=== PATIENT | male | born 1985 | race Caucasian/White ===

== ENCOUNTER 2017-08-14 06:20 | Inpatient (IN) | payer SELFPAY ==
[~2017-08-14] VITALS: Ht 167.6 cm; Wt 70.2 kg
[2017-08-14] VITALS (7 sets, daily range): BP systolic 107–159; BP diastolic 53–77; PULSE 59–115; RESP 16–21; TEMP 98.7–102.7; O2SAT 96–99
--- NOTE | 2017-08-14 06:50 | PD ---
HPI Chief Complaint: Skin Problem Time Seen by Provider: 06:42 Travel History International Travel<30 days: No Contact w/Intl Traveler<30days: No Traveled to known affect area: No History of Present Illness HPI The patient is a 31 year old male who presents to the [facility] emergency department with a history of multiple systemic complaints. #1, the patient reports having a one-week history of sore throat. #2 the patient reports having a one-week history of dysuria with urinary frequency and urgency with a green penile discharge. He denies any new sexual partners but admits that he does not use condoms when he does have sex. #3 the patient reports having left upper extremity swelling and redness with pain that began 2-3 days ago. He reports that he last used IV drugs 2 days ago. He reports that he injects Dilaudid. He denies any known history of HIV or hepatitis C. He reports that he has not been recently tested. He reports having a subjective fever today. He reports having chills. He reports having nausea without vomiting. He reports that over the last week he has had intermittent diarrhea every other day. He denies having any blood in his stool or black or tarry stools. The patient reports on review of systems having chest pain in the center of his chest on palpating his sternum. He denies having any swelling over his sternum. He denies having any shortness of breath. Otherwise on review of systems, he denies having any abdominal pain, cough, neck pain, back pain, or neurologic symptoms. FOR[facility]LY [facility] Past Medical History Narrative Medical The patient's past medical history is significant for MRSA skin infection that was dx 2 years, IV drug use. Medical History: Denies Significant Hx Diminished Hearing: No Tetanus Vaccination: < 5 Years Influenza Vaccination: No Past Surgical History Narrative Surgical The patient's past surgical history is significant for right hand I and D. Other Surgery: Yes (I&D right hand) Social History Alcohol Use: No Tobacco Use: Yes (1/2 ppd) Substance Use: Yes (dilaudid) Allergies-Medications (Allergen,Severity, Reaction): Coded Allergies: acetaminophen (Verified Allergy, Severe, 08/14/17) swelling Narrative Medication None. Review of Systems Except as stated in HPI: all other systems reviewed are Neg General / Constitutional: Positive: Fever, Chills Eyes: No: Visual changes HENT: Positive: Rhinorrhea, No: Headaches, Congestion Cardiovascular: Positive: Chest Pain or Discomfort, No: Dyspnea on exertion Respiratory: Positive: Shortness of Breath, No: Cough Gastrointestinal: Positive: Nausea, Diarrhea (loose stools every other day), No : Vomiting, Abdominal Pain Genitourinary: No: Dysuria Musculoskeletal: No: Pain Skin: Positive Rash (3 weeks) Neurologic: No: Weakness, Focal Abnormalities, Change in Mentation, Slurred Speech, Sensory Disturbance Psychiatric: No: Depression Endocrine: No: Polydipsia Hematologic/Lymphatic: No: Easy Bruising Physical Exam Narrative General: The patient is a well-developed well-nourished male in no acute distress. Head and Neck exam: Head is normocephalic atraumatic. On examination of the patient's face he is noted to have multiple areas of crusting on his chin, around his mouth, and on his cheeks. There is excoriation noted. The patient is noted to be touching and picking at the area frequently on exam. Eyes: EOMI, pupils are equal round and reactive to light. Nose: Midline septum with pink mucous membranes Mouth: Dentition unremarkable. Moist mucus membranes. Posterior oropharynx is erythematous with tonsillar hypertrophy and exudates noted. Uvula midline. Airway patent. Neck: No palpable lymphadenopathy. No nuchal rigidity. No thyromegaly. Cardiovascular: Sinus tachycardia in the low 100 without murmurs, gallops, or rubs. No pulse deficit to the extremities on simultaneous auscultation and palpation of his radial artery. Lungs: Clear to auscultation bilaterally. No wheezes, rhonchi, or rales. Abdomen: Soft, without tenderness to palpation in all 4 quadrants of the abdomen. No guarding, rebound, or rigidity. Normal bowel sounds are audible. No tenderness on palpation of McBurney's point. Extremities: No clubbing, cyanosis, or edema, except in the area of interest, left upper extremity, the patient is noted to have swelling of the left arm with redness, warmth, tenderness on palpation. The patient has no pointing or area of fluctuance. The patient has soft compartments on palpation. The patient has intact sensation over all digits. The patient has less than 3 second capillary refill. 2+ pulses in all 4 extremities. No calf tenderness on palpation. Back: No spinous process tenderness to palpation. No costovertebral angle tenderness to palpation. Neurologic Exam: Grossly nonfocal. Skin Exam: Intact skin that is warm and dry. Data Data Last Documented VS Vital Signs Date Time Temp Pulse Resp B/P (MAP) Pulse Ox O2 Delivery O2 Flow Rate FiO2 08/14/17 07:25 88 21 131/58 (82) 99 Room Air 08/14/17 06:24 100.3 Orders Orders Electrocardiogram (08/14/17 06:57) Complete Blood Count With Diff (08/14/17 06:57) Comprehensive Metabolic Panel (08/14/17 06:57) Creatine Kinase (Cpk) (08/14/17 06:57) Ckmb (Isoenzyme) Profile (08/14/17 06:57) Troponin I (08/14/17 06:57) Blood Culture (08/14/17 06:57) C-Reactive Protein (Crp) (08/14/17 06:57) Urinalysis - C+S If Indicated (08/14/17 06:57) Westergren Sedimentation Rate (08/14/17 06:57) Magnesium (Mg) (08/14/17 06:57) Group A Rapid Strep Screen (08/14/17 06:57) Gc And Chlamydia Pcr (08/14/17 06:57) Chest, Single Ap (08/14/17 06:57) Iv Access Insert/Monitor (08/14/17 06:57) Ecg Monitoring (08/14/17 06:57) Oximetry (08/14/17 06:57) Drug Screen, Random Urine (08/14/17 06:57) Alcohol (Ethanol) (08/14/17 06:57) Lactic Acid Sepsis Protocol (08/14/17 06:57) Sodium Chlor 0.9% 1000 Ml Inj (Ns 1000 M (08/14/17 07:00) Ibuprofen (Motrin) (08/14/17 07:00) Piperacil-Tazo 3.375 Gm Premix (Zosyn 3. (08/14/17 07:00) Vancomycin Inj (Vancomycin Inj) (08/14/17 07:00) Azithromycin Powd Pack (Zithromax Powd P (08/14/17 07:15) Labs Laboratory Tests Test 08/14/17 07:10 White Blood Count 13.7 TH/MM3 Red Blood Count 4.39 MIL/MM3 Hemoglobin 12.3 GM/DL Hematocrit 35.6 % Mean Corpuscular Volume 81.2 FL Mean Corpuscular Hemoglobin 28.1 PG Mean Corpuscular Hemoglobin Concent 34.6 % Red Cell Distribution Width 12.9 % Platelet Count 287 TH/MM3 Mean Platelet Volume 6.8 FL Neutrophils (%) (Auto) 79.6 % Lymphocytes (%) (Auto) 11.1 % Monocytes (%) (Auto) 8.2 % Eosinophils (%) (Auto) 0.5 % Basophils (%) (Auto) 0.6 % Neutrophils # (Auto) 10.9 TH/MM3 Lymphocytes # (Auto) 1.5 TH/MM3 Monocytes # (Auto) 1.1 TH/MM3 Eosinophils # (Auto) 0.1 TH/MM3 Basophils # (Auto) 0.1 TH/MM3 CBC Comment DIFF FINAL Differential Comment MDM Medical Decision Making Medical Screen Exam Complete: Yes Emergency Medical Condition: Yes Medical Record Reviewed: Yes Differential Diagnosis Cellulitis, versus abscess, versus DVT, versus sepsis related to skin infection , versus gonorrhea, versus chlamydia, versus strep pharyngitis Narrative Course During the course of the patient's emergency department visit, the patient's history, examination, and differential diagnosis were reviewed with the patient. The patient was placed on a cardiac rehabilitation program director with oximetry and frequent blood pressure monitoring. The patient had IV access obtained and blood work sent for analysis. The patient was initially provided Motrin for fever. The patient was given Zosyn and vancomycin for broad-spectrum antibiotic coverage and has extensive cellulitis of the left upper extremity noted. The patient was given normal saline 1 L IV fluid bolus. The patient was also given Zithromax 1 g p.o. The patient's laboratory studies and imaging studies are pending at the conclusion of my shift. The patient's case will be checked out to the oncoming emergency physician to disposition the patient based on the conclusion of the patient's workup. Sepsis Criteria SIRS Criteria (2 or more): Heart rate over 90, WBC > 86592, < 4000 or > 10% bands Sepsis Criteria (SIRS+source): Infect source susp/known Criteria Outcome: Meets SIRS criteria, Meets sepsis criteria Diagnosis Primary Impression: Left arm cellulitis Alana De La O MD Aug 14, 2017 06:50
[2017-08-14] MEDS ORDERED: VANCOMYCIN INJ 1,000 MG in SODIUM CHLOR 0.9% 250 ML INJ 250 ML IV ONE (07:00)
[2017-08-14] MEDS ORDERED: SODIUM CHLOR 0.9% 1000 ML INJ 1,000 ML IV ONE (07:00)
[2017-08-14] MEDS ORDERED: IBUPROFEN 400 MG TAB PO ONE (07:00)
[2017-08-14] MEDS ORDERED: PIPERACIL-TAZO 3.375 GM PREMIX 50 ML IV ONE (07:00)
[2017-08-14] MEDS ORDERED: AZITHROMYCIN PWD FOR SUSP 1 GM PACKET PO ONE (07:15)
--- NOTE | 2017-08-14 07:29 | RADRPT ---
EXAM DATE/TIME: 08/14/2017 07:14 [facility] COMPARISON: No previous studies available for comparison. INDICATIONS : Chest pain. Short of breath. MEDICAL HISTORY : None. SURGICAL HISTORY : None. ENCOUNTER: Initial ACUITY: 1 day PAIN SCORE: 3/10 LOCATION: Bilateral chest FINDINGS: Portable AP view of the chest demonstrates a normal-sized cardiac silhouette. No effusion, consolidat ion, or pneumothorax is visualized. The bones and soft tissues demonstrate no acute abnormality. CONCLUSION: No acute cardiopulmonary abnormality is identified. Ciaran Dhillon MD on August 14, 2017 at 7:27 Board Certified Radiologist. This report was verified electronically.
[2017-08-14 07:41] LABS: AUTOMATED NEUTROPHIL # 10.9 TH/MM3 (1.8-7.7); BASOPHIL # 0.1 TH/MM3 (0-0.2); BASOPHIL % 0.6 % (0.0-2.0); EOSINOPHIL # 0.1 TH/MM3 (0-0.4); EOSINOPHIL % 0.5 % (0.0-4.0); HEMATOCRIT 35.6 % (39.0-51.0); HEMOGLOBIN 12.3 GM/DL (13.0-17.0); LYMPH % 11.1 % (9.0-44.0); LYMPHOCYTE # 1.5 TH/MM3 (1.0-4.8); MEAN CELL VOLUME 81.2 FL (80.0-100.0); MEAN CORPUSCULAR HEMOGLOBIN 28.1 PG (27.0-34.0); MEAN CORPUSCULAR HGB CONC 34.6 % (32.0-36.0); MEAN PLATELET VOLUME 6.8 FL (7.0-11.0); MONO % 8.2 % (0.0-8.0); MONOCYTE # 1.1 TH/MM3 (0-0.9); NEUT % 79.6 % (16.0-70.0); PLATELET COUNT 287 TH/MM3 (150-450); RED BLOOD COUNT 4.39 MIL/MM3 (4.50-5.90); RED CELL DISTRIBUTION WIDTH 12.9 % (11.6-17.2); WHITE BLOOD COUNT 13.7 TH/MM3 (4.0-11.0)
[2017-08-14 07:52] LABS: ALBUMIN 2.8 GM/DL (3.4-5.0); AST (GOT) 25 U/L (15-37); BICARBONATE 26.6 MEQ/L (21.0-32.0); BLOOD UREA NITROGEN 10 MG/DL (7-18); CALCIUM 8.7 MG/DL (8.5-10.1); CHLORIDE 95 MEQ/L (98-107); CREATININE 0.88 MG/DL (0.60-1.30); GLOMERULAR FILTRATION RATE 102 ML/MIN (>89); GLUCOSE,RANDOM 116 MG/DL (74-106); MAGNESIUM 1.9 MG/DL (1.5-2.5); SODIUM (NA) 129 MEQ/L (136-145)
[2017-08-14 07:53] LABS: ALT (GPT) 17 U/L (12-78)
[2017-08-14 07:56] LABS: ALKALINE PHOSPHATASE 80 U/L (45-117); TOTAL BILIRUBIN ADULT 0.4 MG/DL (0.2-1.0); TOTAL PROTEIN 7.7 GM/DL (6.4-8.2); TROPONIN I LESS THAN 0.02 NG/ML (0.02-0.05)
--- NOTE | 2017-08-14 08:29 | RADRPT ---
EXAM DATE/TIME: 08/14/2017 08:03 [facility] COMPARISON: No previous studies available for comparison. INDICATIONS : Left arm swelling and redness. MEDICAL HISTORY : Substance Abuse. IVDR. SURGICAL HISTORY : I&D Right Hand. ENCOUNTER: Initial ACUITY: 3 days PAIN SCORE: 10/10 LOCATION: Left arm. FINDINGS: Nonocclusive thrombus is noted within the left cephalic vein at the antecubital fossa and proximal fo rearm. There is spontaneous flow documented in the brachial, basilic, axillary, and subclavian veins. The vessels are compressible and augmentation response is documented. No filling defects are seen. The flow is phasic with respiration. Direction of flow in the jugular vein is caudal. CONCLUSION: Nonocclusive thrombus within the left cephalic vein at the antecubital fossa proximal forearm. Remington Baxter MD on August 14, 2017 at 8:25 Board Certified Radiologist. This report was verified electronically.
--- NOTE | 2017-08-14 08:37 | PD ---
Physical Exam Date Seen by Provider: Aug 14, 2017 Time Seen by Provider: 07:00 Narrative Patient signed out to me at [address] De La O, patient is an IV drug user, here with left arm cellulitis, also complaining of urethral discharge and sore throat, IV antibiotics were initiated, sepsis workup initiated, and ultrasound ordered for further evaluation of left arm swelling. Laboratory Tests Test 08/14/17 07:10 White Blood Count 13.7 TH/MM3 (4.0-11.0) Red Blood Count 4.39 MIL/MM3 (4.50-5.90) Hemoglobin 12.3 GM/DL (13.0-17.0) Hematocrit 35.6 % (39.0-51.0) Mean Platelet Volume 6.8 FL (7.0-11.0) Neutrophils (%) (Auto) 79.6 % (16.0-70.0) Monocytes (%) (Auto) 8.2 % (0.0-8.0) Neutrophils # (Auto) 10.9 TH/MM3 (1.8-7.7) Monocytes # (Auto) 1.1 TH/MM3 (0-0.9) Erythrocyte Sedimentation Rate 65 mm/hr (0-15) Random Glucose 116 MG/DL (74-106) Albumin 2.8 GM/DL (3.4-5.0) Sodium Level 129 MEQ/L (136-145) Potassium Level 3.3 MEQ/L (3.5-5.1) Chloride Level 95 MEQ/L (98-107) Troponin I LESS THAN 0.02 NG/ML C-Reactive Protein 11.00 MG/DL (0.00-0.30) Last 24 hours Impressions Upper Extremity Ultrasound 08/14/17 0752 Signed Impressions: Service Date/Time: Monday, August 14, 2017 08:03 - CONCLUSION: Nonocclusive thrombus within the left cephalic vein at the antecubital fossa proximal forearm. Remington Baxter MD Chest X-Ray 08/14/17 0657 Signed Impressions: Service Date/Time: Monday, August 14, 2017 07:14 - CONCLUSION: No acute cardiopulmonary abnormality is identified. Ciaran Dhillon MD It appears that he has a thrombophlebitis, cellulitis of the left arm, and IV antibiotics had been initiated. At this point, plan would be to admit him for further treatment. Case was discussed with family practice resident service for admission. Data Data Last Documented VS Vital Signs Date Time Temp Pulse Resp B/P (MAP) Pulse Ox O2 Delivery O2 Flow Rate FiO2 08/14/17 07:25 88 21 131/58 (82) 99 Room Air 08/14/17 06:24 100.3 Orders Orders Electrocardiogram (08/14/17 06:57) Complete Blood Count With Diff (08/14/17 06:57) Comprehensive Metabolic Panel (08/14/17 06:57) Creatine Kinase (Cpk) (08/14/17 06:57) Ckmb (Isoenzyme) Profile (08/14/17 06:57) Troponin I (08/14/17 06:57) Blood Culture (08/14/17 06:57) C-Reactive Protein (Crp) (08/14/17 06:57) Urinalysis - C+S If Indicated (08/14/17 06:57) Westergren Sedimentation Rate (08/14/17 06:57) Magnesium (Mg) (08/14/17 06:57) Group A Rapid Strep Screen (08/14/17 06:57) Gc And Chlamydia Pcr (08/14/17 06:57) Chest, Single Ap (08/14/17 06:57) Iv Access Insert/Monitor (08/14/17 06:57) Ecg Monitoring (08/14/17 06:57) Oximetry (08/14/17 06:57) Drug Screen, Random Urine (08/14/17 06:57) Alcohol (Ethanol) (08/14/17 06:57) Lactic Acid Sepsis Protocol (08/14/17 06:57) Sodium Chlor 0.9% 1000 Ml Inj (Ns 1000 M (08/14/17 07:00) Ibuprofen (Motrin) (08/14/17 07:00) Piperacil-Tazo 3.375 Gm Premix (Zosyn 3. (08/14/17 07:00) Vancomycin Inj (Vancomycin Inj) (08/14/17 07:00) Azithromycin Powd Pack (Zithromax Powd P (08/14/17 07:15) Strep Culture (Group A) (08/14/17 07:10) Us Arm Venous Doppler (08/14/17 07:52) CKMB (08/14/17 07:10) CKMB% (08/14/17 07:10) Admit Order (Ed Use Only) (08/14/17 08:35) Labs Laboratory Tests Test 08/14/17 07:10 White Blood Count 13.7 TH/MM3 Red Blood Count 4.39 MIL/MM3 Hemoglobin 12.3 GM/DL Hematocrit 35.6 % Mean Corpuscular Volume 81.2 FL Mean Corpuscular Hemoglobin 28.1 PG Mean Corpuscular Hemoglobin Concent 34.6 % Red Cell Distribution Width 12.9 % Platelet Count 287 TH/MM3 Mean Platelet Volume 6.8 FL Neutrophils (%) (Auto) 79.6 % Lymphocytes (%) (Auto) 11.1 % Monocytes (%) (Auto) 8.2 % Eosinophils (%) (Auto) 0.5 % Basophils (%) (Auto) 0.6 % Neutrophils # (Auto) 10.9 TH/MM3 Lymphocytes # (Auto) 1.5 TH/MM3 Monocytes # (Auto) 1.1 TH/MM3 Eosinophils # (Auto) 0.1 TH/MM3 Basophils # (Auto) 0.1 TH/MM3 CBC Comment DIFF FINAL Differential Comment Erythrocyte Sedimentation Rate 65 mm/hr Blood Urea Nitrogen 10 MG/DL Creatinine 0.88 MG/DL Random Glucose 116 MG/DL Total Protein 7.7 GM/DL Albumin 2.8 GM/DL Calcium Level 8.7 MG/DL Magnesium Level 1.9 MG/DL Alkaline Phosphatase 80 U/L Aspartate Amino Transf (AST/SGOT) 25 U/L Alanine Aminotransferase (ALT/SGPT) 17 U/L Total Bilirubin 0.4 MG/DL Sodium Level 129 MEQ/L Potassium Level 3.3 MEQ/L Chloride Level 95 MEQ/L Carbon Dioxide Level 26.6 MEQ/L Anion Gap 7 MEQ/L Estimat Glomerular Filtration Rate 102 ML/MIN Lactic Acid Level 0.9 mmol/L Total Creatine Kinase 236 U/L Creatine Kinase MB 1.6 NG/ML Troponin I LESS THAN 0.02 NG/ML C-Reactive Protein 11.00 MG/DL Ethyl Alcohol Level LESS THAN 3 MG/DL [facility] Medical Record Reviewed: Yes Supervised Visit with MIAH: Yes Diagnosis Primary Impression: Left arm cellulitis Additional Impressions: Thrombophlebitis arm Sepsis Admitting Information Admitting Physician Requests: Admit Osmar Karimi MD Aug 14, 2017 08:37
[2017-08-14 09:04] LABS: BILIRUBIN, URINE NEG (NEG); BLOOD, URINE NEG (NEG); GLUCOSE,URINE NEG (NEG); KETONE, URINE NEG (NEG); NITRITE,URINE NEG (NEG); PH, URINE 5.5 (5.0-8.5); URINE COLOR LIGHT-YELLOW (YELLW/STRAW); URINE LEUKOCYTE ESTERASE NEG (NEG)
--- NOTE | 2017-08-14 09:06 | HHI.HP ---
HPI Service Family Medicine Primary Care Physician No Primary Care Physician Admission Diagnosis Left arm cellulitis/thrombophlebitis/sepsis Diagnoses: International Travel<30 Days: No Contact w/Intl Traveler<30days: No Known Affected Area: No History of Present Illness 31 yo M with h/o IVDU presenting with L arm swelling. He states it started swelling 3 days ago and has gotten progressively worse. Started near the antecubital fossa and has extended down his arm. Now having difficulty extending his forearm. Of note he injects Dilaudid (states he last used roughly 1 week ago). He injects in his R arm and has not injected anything in his L arm. Subjective fevers/chills. No N/V. No history of blood clots in the past. He does share needles with his occasionally, who was told she has Hepatitis C. Has been having multiple skin infections (shoulder, back of head) - abscesses that have been draining - over last month. Was hospitalized in [facility] 8 months ago for skin infection in his R hand that required I&D. He states he was told he needed to be on prophylactic Abx for MRSA Also complaining of sore throat for 2 weeks, painful to swallow. Has not been treated Green penile discharge for 2 weeks - last intercourse was 1 month ago. Doesn't use condoms. Of note, the Health department contacted the hospital on admission and stated he was exposed to Syphilis and they have not been able to contact him to this point. (Jasbir Perez MD R1) Review of Systems Constitutional: COMPLAINS OF: Fever, Chills, DENIES: Weight gain, Weight loss Eyes: COMPLAINS OF: Blurred vision, DENIES: Eye pain Ears, nose, mouth, throat: COMPLAINS OF: Throat pain Respiratory: COMPLAINS OF: Cough, Sputum production (yellowish phlem), Shortness of breath Cardiovascular: COMPLAINS OF: Chest pain (worse with certain movements), DENIES : Lower Extremity Edema Gastrointestinal: DENIES: Abdominal pain, Bloody stools, Diarrhea, Nausea, Vomiting Genitourinary: COMPLAINS OF: Penile Discharge (greenish ), DENIES: Hematuria Musculoskeletal: DENIES: Joint pain, Muscle aches, Joint Swelling Integumentary: DENIES: Rash Hematologic/lymphatic: COMPLAINS OF: Lymphadenopathy Neurologic: COMPLAINS OF: Headache, DENIES: Localized weakness Psychiatric: DENIES: Confusion (Jasbir Perez MD R1) Past Family Social History Past Medical History history of MRSA infection Past Surgical History R hand I&D - was told he had infection in the tendon. September 2016 (Jasbri Perez MD R1) Allergies: Coded Allergies: acetaminophen (Verified Allergy, Severe, 08/14/17) swelling Family History None Social History Lives in hotel currently with and brother in law unemployed No alcohol 1/2ppd for 10 years Injects Dilaudid, will use daily for spurts but currently hasn't used in 1 week (Jasbir Perez MD R1) Physical Exam Vital Signs Vital Signs Date Time Temp Pulse Resp B/P (MAP) Pulse Ox O2 Delivery O2 Flow Rate FiO2 08/14/17 07:25 88 21 131/58 (82) 99 Room Air 08/14/17 06:24 100.3 115 16 159/77 (104) 96 Physical Exam GENERAL: This is a well-nourished, well-developed patient, in no apparent distress. SKIN: No rashes, ecchymoses or lesions. Cool and dry. Multiple excoriations noted on patient's face, neck, back. Different stages of healing. No purulent drainage appreciated HEAD: Atraumatic. Normocephalic. EYES: Pupils equal round and reactive. Extraocular motions intact. No scleral icterus. No injection or drainage. ENT: Nose without bleeding, purulent drainage or septal hematoma. Throat is erythematous with multiple ulcerations noted in posterior oropharynx. Uvula midline. Airway patent. NECK: Trachea midline. No JVD or lymphadenopathy. Supple, nontender, no meningeal signs. CARDIOVASCULAR: Regular rate and rhythm. Occasional 1/6 systolic murmur appreciated along L sternal border RESPIRATORY: Clear to auscultation. Breath sounds equal bilaterally. No wheezes , rales, or rhonchi. GASTROINTESTINAL: Abdomen soft, non-tender, nondistended. No hepato-splenomegaly , or palpable masses. No guarding. MUSCULOSKELETAL: Extremities without clubbing, cyanosis, or edema. No joint tenderness, effusion, or edema noted. No calf tenderness. Negative Homans sign bilaterally. L forearm is noticeably more edematous, erythematous and warm to touch compared to the R. Edema extends from antecubital fossa to proximal wrist. No obvious abscess, drainage appreciated. No splinter hemorrhages appreciated in fingers/toes NEUROLOGICAL: Awake and alert. Cranial nerves II through XII intact. Motor and sensory grossly within normal limits. Five out of 5 muscle strength in all muscle groups. Normal speech. Laboratory Laboratory Tests Test 08/14/17 07:10 08/14/17 08:33 White Blood Count 13.7 Red Blood Count 4.39 Hemoglobin 12.3 Hematocrit 35.6 Mean Corpuscular Volume 81.2 Mean Corpuscular Hemoglobin 28.1 Mean Corpuscular Hemoglobin Concent 34.6 Red Cell Distribution Width 12.9 Platelet Count 287 Mean Platelet Volume 6.8 Neutrophils (%) (Auto) 79.6 Lymphocytes (%) (Auto) 11.1 Monocytes (%) (Auto) 8.2 Eosinophils (%) (Auto) 0.5 Basophils (%) (Auto) 0.6 Neutrophils # (Auto) 10.9 Lymphocytes # (Auto) 1.5 Monocytes # (Auto) 1.1 Eosinophils # (Auto) 0.1 Basophils # (Auto) 0.1 CBC Comment DIFF FINAL Differential Comment Erythrocyte Sedimentation Rate 65 Blood Urea Nitrogen 10 Creatinine 0.88 Random Glucose 116 Total Protein 7.7 Albumin 2.8 Calcium Level 8.7 Magnesium Level 1.9 Alkaline Phosphatase 80 Aspartate Amino Transf (AST/SGOT) 25 Alanine Aminotransferase (ALT/SGPT) 17 Total Bilirubin 0.4 Sodium Level 129 Potassium Level 3.3 Chloride Level 95 Carbon Dioxide Level 26.6 Anion Gap 7 Estimat Glomerular Filtration Rate 102 Lactic Acid Level 0.9 Total Creatine Kinase 236 Creatine Kinase MB 1.6 Troponin I LESS THAN 0.02 C-Reactive Protein 11.00 Ethyl Alcohol Level LESS THAN 3 Date/Time Source Procedure Growth Status 08/14/17 07:10 Blood Peripheral Aerobic Blood Culture Pending Received 08/14/17 07:10 Blood Peripheral Anaerobic Blood Culture Pending Received 08/14/17 07:10 Throat Group A Streptococcus Screen Pending Received (Jasbir Perez MD R1) Result Diagram: 08/14/17 0710 08/14/17 0710 Imaging Last 48 hours Impressions Upper Extremity Ultrasound 08/14/17 0752 Signed Impressions: Service Date/Time: Monday, August 14, 2017 08:03 - CONCLUSION: Nonocclusive thrombus within the left cephalic vein at the antecubital fossa proximal forearm. Remington Baxter MD Chest X-Ray 08/14/17 0657 Signed Impressions: Service Date/Time: Monday, August 14, 2017 07:14 - CONCLUSION: No acute cardiopulmonary abnormality is identified. Ciaran Dhillon MD (Jasbir Perez MD R1) Caprini VTE Risk Assessment Caprini VTE Risk Assessment: No/Low Risk (score <= 1) Caprini Risk Assessment Model Point Value = 1 Point Value = 2 Point Value = 3 Point Value = 5 Age 41-60 Minor surgery BMI > 25 kg/m2 Swollen legs Varicose veins or History of unexplained or recurrent spontaneous Oral contraceptives or hormone replacement Sepsis (< 1 month) Serious lung disease, including pneumonia (< 1 month) Abnormal pulmonary function Acute myocardial infarction Congestive heart failure (< 1 month) History of inflammatory bowel disease Medical patient at bed rest Age 61-74 Arthroscopic surgery Major open surgery (> 45 min) Laparoscopic surgery (> 45 min) Malignancy Confined to bed (> 72 hours) Immobilizing plaster cast Central venous access Age >= 75 History of VTE Family history of VTE Factor V Leiden Prothrombin [id number] Lupus anticoagulant Anticardiolipin antibodies Elevated serum homocysteine Heparin-induced thrombocytopenia Other congenital or acquired thrombophilia Stroke (< 1 month) Elective arthroplasty Hip, pelvis, or leg fracture Acute spinal cord injury (< 1 month) Prophylaxis Regimen Total Risk Factor Score Risk Level Prophylaxis Regimen 0-1 Low Early ambulation 2 Moderate Order ONE of the following: *Sequential Compression Device (SCD) *Heparin 5000 units SQ BID 3-4 Higher Order ONE of the following medications: *Heparin 5000 units SQ TID *Enoxaparin/Lovenox 40 mg SQ daily (WT < 150 kg, CrCl > 30 mL/min) *Enoxaparin/Lovenox 30 mg SQ daily (WT < 150 kg, CrCl > 10-29 mL/min) *Enoxaparin/Lovenox 30 mg SQ BID (WT < 150 kg, CrCl > 30 mL/min) AND/OR *Sequential Compression Device (SCD) 5 or more Highest Order ONE of the following medications: *Heparin 5000 units SQ TID (Preferred with Epidurals) *Enoxaparin/Lovenox 40 mg SQ daily (WT < 150 kg, CrCl > 30 mL/min) *Enoxaparin/Lovenox 30 mg SQ daily (WT < 150 kg, CrCl > 10-29 mL/min) *Enoxaparin/Lovenox 30 mg SQ BID (WT < 150 kg, CrCl > 30 mL/min) AND *Sequential Compression Device (SCD) (Jasbir Perez MD R1) Assessment and Plan Assessment and Plan 31 yo M with history of IVDU presenting to ED with 3 day history of progressive L forearm swelling/pain. Also with subjective fevers, sore throat and penile discharge. Ultrasound on admission notable for nonocclusive thrombus in the L cephalic vein at the antecubital fossa. Meets SIRS criteria on admission. Will admit to inpatient and start on antibiotics Code Status Full code Discussed Condition With Dr. Awilda Gutierrez (Jasbir Perez MD R1) Attending Attestation Pt. was seen and examined within minutes of his having been seen by the Medicine Team, after they presented his case to me. This 31 yo male admits to IV drug use and sharing needles. Three days of increasing swelling and pain left arm including elbow. Poor sleep due to pain. Also with penile discharge. When seen this a.m. still complaining of significant pain left arm. Appetite is ok, no constipation. Physical exam is as noted in the resident note. I agree with the plan as documented. (Awilda Gutierrez MD) Problem List: (1) Thrombophlebitis arm ICD Codes: I80.8 - Phlebitis and thrombophlebitis of other sites Status: Acute Plan: Patient presenting with 3 day history of left forearm swelling, pain Known IV drug user Ultrasound on admission notable for nonocclusive thrombus in the L cephalic vein at the antecubital fossa Ordering K thermia Coag studies pending Ibuprofen, Toradol for pain (2) Sepsis ICD Codes: A41.9 - Sepsis, unspecified organism Status: Acute Plan: Patient meeting SIRS criteria on admission with heart rate 115, WBC 13.7 ESR 65, CRP 11 Suspected source possibilities include cellulitis, bacteremia, endocarditis Received vancomycin, Zosyn, azithromycin in the ED Lactic acid 0.9 Chest x-ray negative on admission Blood cultures pending We will continue vancomycin to cover for MRSA Rocephin 1 g IV once to treat possible gonorrhea infection Echocardiogram pending to rule out endocarditis (3) Hyponatremia ICD Codes: E87.1 - Hypo-osmolality and hyponatremia Plan: Patient noted to be hyponatremic with a sodium of 129 on admission Normal saline IV fluids at 100 mL/hr Will monitor BMP (4) Penile discharge ICD Codes: R36.9 - Urethral discharge, unspecified Plan: Patient with a reported greenish penile discharge over the last 2 weeks Patient reports that he does not use condoms or any other protection during intercourse GC, chlamydia, RPR, HIV pending Received azithromycin, Rocephin 1 to prophylactically treat GC chlamydia (5) IVDU (intravenous drug user) ICD Codes: F19.90 - Other psychoactive substance use, unspecified, uncomplicated Plan: Known history of IV drug use Reports injecting Dilaudid regularly UDS on admission positive for opiates and cocaine Infectious workup as above reports that she has hepatitis C Hepatitis panel pending (6) Exposure to syphilis ICD Codes: Z20.2 - Contact with and (suspected) exposure to infections with a predominantly sexual mode of transmission Plan: Health department contacted [place] [facility] on admission to report that patient had a known syphilis exposure that he was unaware of RPR pending We will treat with penicillin pending this result (7) Throat pain ICD Codes: R07.0 - Pain in throat Plan: Sore throat for 2 weeks Physical exam showed ulcerations in the posterior oropharynx Group a streptococcus screen was negative on admission [place] screen pending Ordering Magic mouthwash for symptomatic relief (8) FEN Plan: Normal saline at 100 mL/h We will replete electrolytes as needed Regular diet SCDs for DVT prophylaxis (Jasbir Perez MD R1) Physician Certification 2 Midnight Certification Type: Admission for Inpatient Services Order for Inpatient Services The services are ordered in accordance with Medicare regulations or non- Medicare payer requirements, as applicable. In the case of services not specified as inpatient-only, they are appropriately provided as inpatient services in accordance with the 2-midnight benchmark. Estimated LOS (days): 2 days is the estimated time the patient will need to remain in the hospital, assuming treatment plan goals are met and no additional complications. Post-Hospital Plan: Home (Jasbir Perez MD R1) Jasbir Perez MD R1 Aug 14, 2017 09:06 Awilda Gutierrez MD Aug 14, 2017 15:04
[2017-08-14] MEDS ORDERED: IBUPROFEN 400 MG TAB PO PRN (09:30)
[2017-08-14] MEDS ORDERED: NALOXONE HCL 0.4 MG/ML AMP IV PUSH PRN (09:30)
[2017-08-14] MEDS ORDERED: SODIUM CHLORIDE 0.9% FLUSH 10 ML FLUSH IV FLUSH PRN (09:30)
[2017-08-14] MEDS ORDERED: KETOROLAC TROMETHAMINE 30 MG/ML (IVP) VIAL IV PUSH PRN ×2 (09:30)
[2017-08-14] MEDS ORDERED: POTASSIUM CHLORIDE 20 MEQ CONTROLLED RELEASE TAB PO ONE (10:00)
[2017-08-14 10:26] LABS: INTERNATIONAL NORMALIZED RATIO 1.2 RATIO
[2017-08-14] MEDS ORDERED: cefTRIAXone INJ 1,000 MG in SODIUM CHLORIDE 0.9% INJ 100 ML IV ONE (10:45)
[2017-08-14 10:48] LABS: MONOSCREEN NEG (NEG)
[2017-08-14] MEDS: SODIUM CHLOR 0.9% 1000 ML INJ 1,000 ML IV SCH ×2 (11:16→21:12)
--- NOTE | 2017-08-14 12:21 | EKG ---
Date Performed: 08/14/2017 Time Performed: 07:40:20 PTAGE: 31 years EKG: Sinus rhythm NORMAL ECG NO PREVIOUS TRACING DOCTOR: Raimundo Interiano Interpretating Date/Time 08/14/2017 12:19:10
[2017-08-14] MEDS: NYSTAT/DIPHENHY/LIDO MOUTHWASH (Adult) 120ML SWISH-SWAL SCH ×3 (15:05→21:11)
[2017-08-14] MEDS: VANCOMYCIN INJ 1,000 MG in SODIUM CHLOR 0.9% 250 ML INJ 250 ML IV SCH (18:25)
[2017-08-14] MEDS: SODIUM CHLORIDE 0.9% FLUSH 10 ML FLUSH IV FLUSH SCH (21:00)
[2017-08-15 00:09] VITALS: BP 93/55; PULSE 82; RESP 18; TEMP 97.6; O2SAT 98
[2017-08-15 03:27] VITALS: BP 95/50; PULSE 59; RESP 16; TEMP 97.5; O2SAT 99
[2017-08-15] MEDS: VANCOMYCIN INJ 1,000 MG in SODIUM CHLOR 0.9% 250 ML INJ 250 ML IV SCH (06:34)
[2017-08-15] MEDS: SODIUM CHLOR 0.9% 1000 ML INJ 1,000 ML IV SCH ×2 (06:34→16:42)
[2017-08-15 07:44] LABS: AUTOMATED NEUTROPHIL # 5.7 TH/MM3 (1.8-7.7); BASOPHIL # 0.1 TH/MM3 (0-0.2); BASOPHIL % 0.8 % (0.0-2.0); EOSINOPHIL # 0.2 TH/MM3 (0-0.4); HEMATOCRIT 36.8 % (39.0-51.0); HEMOGLOBIN 12.3 GM/DL (13.0-17.0); LYMPH % 21.2 % (9.0-44.0); LYMPHOCYTE # 1.8 TH/MM3 (1.0-4.8); MEAN CELL VOLUME 82.7 FL (80.0-100.0); MEAN CORPUSCULAR HEMOGLOBIN 27.6 PG (27.0-34.0); MEAN CORPUSCULAR HGB CONC 33.4 % (32.0-36.0); MEAN PLATELET VOLUME 7.1 FL (7.0-11.0); MONO % 7.3 % (0.0-8.0); MONOCYTE # 0.6 TH/MM3 (0-0.9); NEUT % 68.7 % (16.0-70.0); PLATELET COUNT 240 TH/MM3 (150-450); RED BLOOD COUNT 4.45 MIL/MM3 (4.50-5.90); RED CELL DISTRIBUTION WIDTH 12.9 % (11.6-17.2); WHITE BLOOD COUNT 8.3 TH/MM3 (4.0-11.0)
[2017-08-15 08:00] VITALS: BP 107/59; PULSE 60; PULSE 65; RESP 18; TEMP 98.2; O2SAT 100
[2017-08-15 08:07] LABS: BICARBONATE 26.6 MEQ/L (21.0-32.0); CALCIUM 8.3 MG/DL (8.5-10.1); CREATININE 0.72 MG/DL (0.60-1.30)
[2017-08-15] MEDS: NYSTAT/DIPHENHY/LIDO MOUTHWASH (Adult) 120ML SWISH-SWAL SCH ×4 (08:30→22:45)
[2017-08-15] MEDS: SODIUM CHLORIDE 0.9% FLUSH 10 ML FLUSH IV FLUSH SCH ×2 (08:31→22:50)
--- NOTE | 2017-08-15 11:33 | HHI.FPPN ---
Subjective Remarks Nursing reports the patient's significant other came to the room last night and there appeared to be suspicious activity in the room at that time. Apparently the patient and significant other were going to the bathroom separately and together for multiple minutes at a time. The patient states that she was helping him shower. Patient resting comfortably. Denies chest pain, nausea, vomiting, shortness of breath. Patient states his left arm remains sore, although does feel better than yesterday. (Raul Gutierrez MD R3) Objective Vitals Vital Signs Date Time Temp Pulse Resp B/P (MAP) Pulse Ox O2 Delivery O2 Flow Rate FiO2 08/15/17 08:00 98.2 65 18 107/59 (75) 100 08/15/17 03:27 97.5 59 16 95/50 (65) 99 08/15/17 00:09 97.6 82 18 93/55 (68) 98 08/14/17 22:34 98.7 08/14/17 19:37 102.7 91 18 107/53 (71) 96 08/14/17 15:02 08/14/17 14:03 98.7 59 17 132/64 (86) 98 Room Air I/O 08/14/17 08/14/17 08/14/17 08/15/17 08/15/17 08/15/17 07:00 15:00 23:00 07:00 15:00 23:00 Intake Total 1663 ml Output Total 1100 ml 0 ml Balance -1100 ml 1663 ml Intake Oral 700 ml IV Total 963 ml Output Urine Total 1100 ml 0 ml # Voids 3 # Bowel Movements 1 (Raul Gutierrez MD R3) Result Diagram: 08/15/1717 08/15/17 0717 Objective Remarks GENERAL: This is a well-nourished, well-developed patient, in no apparent distress. SKIN: Left forearm with moderate sized 8x8 cm erythematous and slightly tender area. Multiple excoriations noted on patient's face, neck, back. Different stages of healing. No purulent drainage appreciated Penis: On the glans penis there is a chancre sore approximately 5x5 mm, non painful; also a 3x3 mm non painful chancre sore on the right shaft of penis. + bilateral inguinal lymphadenopathy HEAD: Atraumatic. Normocephalic. EYES: Pupils equal round and reactive. Extraocular motions intact. No scleral icterus. No injection or drainage. ENT: Nose without bleeding, purulent drainage or septal hematoma. Throat is erythematous with multiple ulcerations noted in posterior oropharynx. Uvula midline. Airway patent. NECK: Trachea midline. No JVD or lymphadenopathy. Supple, nontender, no meningeal signs. CARDIOVASCULAR: Regular rate and rhythm. 1-2/6 systolic murmur appreciated along L sternal border RESPIRATORY: Clear to auscultation. Breath sounds equal bilaterally. No wheezes , rales, or rhonchi. GASTROINTESTINAL: Abdomen soft, non-tender, nondistended. No hepato-splenomegaly , or palpable masses. No guarding. MUSCULOSKELETAL: Extremities without clubbing, cyanosis, or edema. No joint tenderness, effusion, or edema noted. No calf tenderness. Negative Homans sign bilaterally. No obvious abscess, drainage appreciated. No splinter hemorrhages appreciated in fingers/toes NEUROLOGICAL: Awake and alert. Cranial nerves II through XII intact. Motor and sensory grossly within normal limits. Five out of 5 muscle strength in all muscle groups. Normal speech. (Raul Gutierrez MD R3) A/P Assessment and Plan 31 yo M with history of IVDU presenting to ED with 3 day history of progressive L forearm swelling/pain. Also with subjective fevers, sore throat and penile discharge. Ultrasound on admission notable for nonocclusive thrombus in the L cephalic vein at the antecubital fossa. Meets SIRS criteria on admission. Will admit to inpatient and start on antibiotics Discharge Planning Unclear at this time. (Raul Gutierrez MD R3) Attending Attestation Patient was seen, examined and discussed with the medicine team on the morning of August 15. Patient still complaining of pain in his left arm, and while initially denying that he had any lesions in the genital area, examination revealed chancres on his penis and scrotum. Significant nodular lymphadenopathy in both groins. Penicillin will be ordered. Infectious disease consultation has been placed. I agree with the physical findings as documented by the resident physicians, and I agree with the plan. (Awilda Gutierrez MD) Problem List: (1) Bacteremia ICD Codes: R78.81 - Bacteremia Status: Acute Plan: Likely from endocarditis. Echocardiogram pending History of IV drug use Blood cultures 08/14 growing gram-positive cocci Infectious disease consulted Currently on Vancomycin 1500 g q12 hours Vancomycin pharmacy consult Antibiotic history: Vancomycin 1 g every 12 hours Azithromycin 1 g 1 (stopped) Zosyn given 1 time Ceftriaxone 1 g given 1 (2) Syphilis ICD Codes: A53.9 - Syphilis, unspecified Status: Acute Plan: Physical exam shows a penile painless canker sore resembling syphilis RPR reactive T. pallidum (FTA antibody) pending Treat with 1 dose of penicillin benzathine 2.4 million units IM Patient notified and instructed this is extremely contagious and to use safe sex precautions with condom. (3) Thrombophlebitis arm ICD Codes: I80.8 - Phlebitis and thrombophlebitis of other sites Status: Acute Plan: Patient presenting with 3 day history of left forearm swelling, pain Known IV drug user Ultrasound on admission notable for nonocclusive thrombus in the L cephalic vein at the antecubital fossa Continue k thermia Coag studies pending Ibuprofen, Toradol for pain Antibiotics as above (4) Sepsis ICD Codes: A41.9 - Sepsis, unspecified organism Status: Resolved Plan: Currently resolved. See bacteremia above (5) Hyponatremia ICD Codes: E87.1 - Hypo-osmolality and hyponatremia Status: Resolved Plan: Resolved (6) Penile discharge ICD Codes: R36.9 - Urethral discharge, unspecified Status: Resolved Plan: Not currently having penile discharge Physical exam concerning for syphilis GC, chlamydia-negative RPR pending HIV negative Received azithromycin, Rocephin 1 to prophylactically treat GC chlamydia (7) IVDU (intravenous drug user) ICD Codes: F19.90 - Other psychoactive substance use, unspecified, uncomplicated Status: Acute Plan: Known history of IV drug use Reports injecting Dilaudid regularly Nursing reports suspicious activity. Patient is told multiple varying stories. Do not allow visitors at this time (Order placed for this.) UDS on admission positive for opiates and cocaine (8) Throat pain ICD Codes: R07.0 - Pain in throat Plan: Sore throat for 2 weeks Physical exam showed ulcerations in the posterior oropharynx. Possibly related to syphilis. See treatment as above. Group a streptococcus screen was negative on admission [place] screen pending Ordering Magic mouthwash for symptomatic relief (9) Hepatitis C antibody positive in blood ICD Codes: R76.8 - Other specified abnormal immunological findings in serum Status: Acute Plan: Patient to be informed about hepatitis C antibody positive Considering hepatitis C viral load at this time versus outpatient workup (10) FEN Status: Acute Plan: Normal saline at 100 mL/h We will replete electrolytes as needed Regular diet SCDs for DVT prophylaxis (Raul Gutierrez MD R3) Raul Gutierrez MD R3 Aug 15, 2017 11:33 Awilda Gutierrez MD Aug 16, 2017 11:08
[2017-08-15 11:38] LABS: RPR SCREEN FOR REFLEX REACTIVE (NON-REACTVE)
[2017-08-15 12:51] VITALS: BP 109/54; PULSE 81; RESP 18; TEMP 98.1; O2SAT 100
[2017-08-15] MEDS ORDERED: PENICILLIN G BENZATHINE 2,400,000 UNITS/4 ML SYRINGE IM ONE (13:00)
--- NOTE | 2017-08-15 15:34 | ECHRPT ---
Indication: Endocarditis CONCLUSIONS The left ventricular systolic function is low normal with an estimated ejection fraction in the rang e of 50- 55%. Normal left ventricular size. Wall thickness is normal. There is trace tricuspid valve regurgitation. The estimated pulmonary arterial pressure is 21.3 mmHg. Mild pulmonary valve regurgitation. BP: 131 / 58 HR: 74 Rhythm: Sinus MEASUREMENTS (Male / Female) Normal Values Technical Quality:Fair 2D ECHO LV Diastolic Diameter PLAX 4.9 cm 4.2 - 5.9 / 3.9 - 5.3 cm LV Systolic Diameter PLAX 3.8 cm IVS Diastolic Thickness 0.7 cm 0.6 - 1.0 / 0.6 - 0.9 cm LVPW Diastolic Thickness 0.8 cm 0.6 - 1.0 / 0.6 - 0.9 cm LV Relative Wall Thickness 0.3 RV Internal Dim ED PLAX 2.7 cm LA Systolic Diameter LX 3.0 cm 3.0 - 4.0 / 2.7 - 3.8 cm M-MODE Aortic Root Diameter MM 2.6 cm LA Systolic Diameter MM 3.4 cm LA Ao Ratio MM 1.3 AV Cusp Separation MM 2.1 cm DOPPLER AV Peak Velocity 156.0 cm/s AV Peak Gradient 9.7 mmHg LVOT Peak Velocity 92.2 cm/s LVOT Peak Gradient 3.4 mmHg MV Area PHT 2.3 cm Mitral E Point Velocity 100.0 cm/s Mitral A Point Velocity 41.6 cm/s Mitral E to A Ratio 2.4 LV E' Lateral Velocity 26.1 cm/s Mitral E to LV E' Lateral Ratio 3.8 LV E' Septal Velocity 14.6 cm/s Mitral E to LV E' Septal Ratio 6.8 TR Peak Velocity 202.0 cm/s TR Peak Gradient 16.3 mmHg Right Atrial Pressure 5.0 mmHg Pulmonary Artery Systolic Pressu 21.3 mmHg Right Ventricular Systolic Press 21.3 mmHg FINDINGS LEFT VENTRICLE The left ventricular systolic function is low normal with an estimated ejection fraction in the rang e of 50- 55%. Normal left ventricular size. Wall thickness is normal. RIGHT VENTRICLE Normal right ventricular size and systolic function. LEFT ATRIUM The left atrial size is normal. RIGHT ATRIUM The right atrial size is normal. ATRIAL SEPTUM Normal atrial septal thickness without atrial level shunting by limited color doppler interrogation. AORTA The aortic root and proximal ascending aorta are normal in size on limited imaging. MITRAL VALVE Structurally normal mitral valve. No mitral valve stenosis or regurgitation. AORTIC VALVE Trileaflet aortic valve. No aortic valve stenosis or regurgitation. TRICUSPID VALVE Structurally normal tricuspid valve. There is trace tricuspid valve regurgitation. The estimated pulmonary arterial pressure is 21.3 mmHg. PULMONARY VALVE Mild pulmonary valve regurgitation. VESSELS The inferior vena cava is normal in size. PERICARDIUM No pericardial effusion. Raimundo Interiano MD, FACC (Electronically Signed) Final Date:15 August 2017 15:33
[2017-08-15 17:05] VITALS: BP 115/56; PULSE 85; RESP 21; TEMP 98.7; O2SAT 99
[2017-08-15] MEDS: VANCOMYCIN INJ 1,500 MG in SODIUM CHLORID 0.9% 500 ML INJ 500 ML IV SCH (17:12)
--- NOTE | 2017-08-15 18:27 | PD.ID.CON ---
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 With this background patient presents to the hospital complaining of left arm swelling. He reports he noticed swelling, followed by erythema which progressively got worse. He reports difficulty extending his forearm due to pain. Subjective fevers and chills. Denies night sweats. He additionally reports having multiple skin infections (shoulder, back of head) - abscesses that have been draining over last month. He reports being hospitalized in [facility] 1 month back for Right thumb I&D needing IV antibiotics for MRSA. He also complains of sore throat and odynophagia for last 2 weeks. He denies any oral thrush. He denies oral sex but does not appear reliable. He reports green penile discharge for last 2 weeks, unprotected sex with and 1 other female partner. Denies any male partners. Of note, the Health department contacted the hospital on admission and stated he was exposed to Syphilis and they have not been able to contact him to treat him for the same. His titer is at 1:256 prior to treatment. He received 1 dose of Penicillin and 1 dose of Ceftriaxone. Rest of the STD workup pending but he is Hep C positive as well. ID consulted for evaluation and Mment of Endocarditis and Syphilis. Review of Systems ROS Limitations: Poor Historian Constitutional: COMPLAINS OF: Fever, Chills, DENIES: Diaphoretic episodes, Fatigue, Weight gain, Weight loss, Dizziness, Change in appetite, Night Sweats Endocrine: DENIES: Heat/cold intolerance, Polydipsia, Polyuria, Polyphagia Eyes: DENIES: Blurred vision, Diplopia, Eye inflammation, Eye pain, Vision loss , Photosensitivity, Double Vision Ears, nose, mouth, throat: COMPLAINS OF: Oral lesions, DENIES: Tinnitus, Hearing loss, Vertigo, Nasal discharge, Throat pain, Hoarseness, Ear Pain, Running Nose, Epistaxis, Sinus Pain, Toothache, Odynophagia Respiratory: DENIES: Apneas, Cough, Snoring, Wheezing, Hemoptysis, Sputum production, Shortness of breath Cardiovascular: DENIES: Chest pain, Palpitations, Syncope, Dyspnea on Exertion , PND, Lower Extremity Edema, Orthopnea, Claudication Gastrointestinal: DENIES: Abdominal pain, Black stools, Bloody stools, Constipation, Diarrhea, Nausea, Vomiting, Difficulty Swallowing, Anorexia Genitourinary: COMPLAINS OF: Penile Discharge Musculoskeletal: DENIES: Joint pain, Muscle aches, Stiffness, Joint Swelling, Back pain, Neck pain Integumentary: DENIES: Abnormal pigmentation, Nail changes, Pruritus, Rash Hematologic/lymphatic: DENIES: Bruising, Lymphadenopathy Immunologic/allergic: DENIES: Eczema, Urticaria Neurologic: COMPLAINS OF: Headache, DENIES: Abnormal gait, Localized weakness, Paresthesias, Seizures, Speech Problems, Tremor, Poor Balance Psychiatric: DENIES: Anxiety, Confusion, Mood changes, Depression, Hallucinations, Agitation, Suicidal Ideation, Homicidal Ideation, Delusions Except as stated in HPI: all other systems reviewed are Neg complains of genital discharge and lesion on penile shaft. Past Family Social History Allergies: Coded Allergies: acetaminophen (Verified Allergy, Severe, 08/14/17) swelling Past Medical History history of MRSA infection right thumb denies endocarditis denies epidural abscess Past Surgical History R hand I&D - was told he had infection in the tendon. September 2016 Reported Medications None Active Ordered Medications Current Medications Medications (Trade) Dose Ordered Sig/Zara Route Start Time Stop Time Status Last Admin (NS Flush) 2 ml BID IV FLUSH 08/14/17 21:00 08/15/17 22:50 (NS Flush) 2 ml UNSCH PRN IV FLUSH 08/14/17 09:30 Sodium Chloride 1,000 ml @ 100 mls/hr Q10H IV 08/14/17 09:21 08/15/17 06:34 (Motrin) 400 mg Q6H PRN PO 08/14/17 09:30 08/14/17 21:11 (Toradol Inj) 15 mg Q6H PRN IV PUSH 08/14/17 09:30 08/19/17 09:29 (Toradol Inj) 30 mg Q6H PRN IV PUSH 08/14/17 09:30 08/19/17 09:29 08/15/17 13:36 (Narcan Inj) 0.4 mg UNSCH PRN IV PUSH 08/14/17 09:30 (Magic Mouthwash Adult Liq) 5 ml QID SWISH-SWAL 08/14/17 13:00 08/15/17 22:45 Vancomycin HCl 1500 mg/Sodium Chloride 515 ml @ 257.5 mls/ hr Q12H IV 08/15/17 18:00 08/15/17 17:12 (Bactroban 2% Oint) 1 applic Q12HR TOPICAL 08/15/17 21:00 08/15/17 22:50 Family History reviewed and NC to current ID problems. Social History Lives in hotel currently with and brother in law both of whom do drugs. He will soon be homeless. unemployed No alcohol 1/2ppd for 10 years Injects Dilaudid, will use daily but currently hasn't used in 1 week Physical Exam Vital Signs Vital Signs Date Time Temp Pulse Resp B/P (MAP) Pulse Ox O2 Delivery O2 Flow Rate FiO2 08/15/17 17:05 98.7 85 21 115/56 (75) 99 08/15/17 12:51 98.1 81 18 109/54 (72) 100 08/15/17 08:00 98.2 65 18 107/59 (75) 100 08/15/17 08:00 60 08/15/17 03:27 97.5 59 16 95/50 (65) 99 08/15/17 00:09 97.6 82 18 93/55 (68) 98 08/14/17 22:34 98.7 08/14/17 19:37 102.7 91 18 107/53 (71) 96 Physical Exam GENERAL: Thin built, poorly nourished male patient, in no apparent distress. SKIN: No rashes, ecchymoses or lesions. Cool and dry. Small lesion on palm of his hand no visible spirochetes. HEAD: Atraumatic. Normocephalic. No temporal or scalp tenderness. EYES: Pupils equal round and reactive. Extraocular motions intact. No scleral icterus. No injection or drainage. ENT: Nose without bleeding, purulent drainage or septal hematoma. Throat without erythema, tonsillar hypertrophy or exudate. Uvula midline. Airway patent. Perioral ulcers. Tongue with some ulcerations on posterior aspect noted. Angular cheilosis noted. NECK: Trachea midline. Supple, nontender, no meningeal signs. CARDIOVASCULAR: HS audible. RESPIRATORY: Clear to auscultation. Breath sounds equal bilaterally. No wheezes , rales, or rhonchi. GASTROINTESTINAL: Abdomen soft, non-tender, nondistended. MUSCULOSKELETAL: Extremities without clubbing, cyanosis, or edema. No joint tenderness, effusion, or edema noted. No calf tenderness. Negative Homans sign bilaterally. NEUROLOGICAL: Awake and alert. Cranial nerves II through XII intact. Motor and sensory grossly within normal limits. Five out of 5 muscle strength in all muscle groups. Normal speech. Psych cooperative IV line sites with no e.o infection. exam: (examined in presence of RN access coordinator): Penile shaft chancre/ulceration , discharge noted. Laboratory Laboratory Tests Test 08/15/17 07:17 White Blood Count 8.3 Red Blood Count 4.45 Hemoglobin 12.3 Hematocrit 36.8 Mean Corpuscular Volume 82.7 Mean Corpuscular Hemoglobin 27.6 Mean Corpuscular Hemoglobin Concent 33.4 Red Cell Distribution Width 12.9 Platelet Count 240 Mean Platelet Volume 7.1 Neutrophils (%) (Auto) 68.7 Lymphocytes (%) (Auto) 21.2 Monocytes (%) (Auto) 7.3 Eosinophils (%) (Auto) 2.0 Basophils (%) (Auto) 0.8 Neutrophils # (Auto) 5.7 Lymphocytes # (Auto) 1.8 Monocytes # (Auto) 0.6 Eosinophils # (Auto) 0.2 Basophils # (Auto) 0.1 CBC Comment DIFF FINAL Differential Comment Blood Urea Nitrogen 10 Creatinine 0.72 Random Glucose 85 Calcium Level 8.3 Sodium Level 141 Potassium Level 4.2 Chloride Level 109 Carbon Dioxide Level 26.6 Anion Gap 5 Estimat Glomerular Filtration Rate 129 Date/Time Source Procedure Growth Status 08/14/17 07:10 Blood Peripheral Aerobic Blood Culture - Preliminary Gram Positive Cocci Resulted 08/14/17 07:10 Anaerobic Blood Culture - Preliminary Gram Positive Cocci Resulted 08/14/17 07:10 Throat Group A Streptococcus Screen - Preliminary BETA COLONIES?? Resulted Result Diagram: 08/15/1717 08/15/1717 Imaging Last Impressions Head CT 08/15/17 0000 Signed Impressions: Service Date/Time: July 19:56 - CONCLUSION: Negative noncontrast head CT. Ciaran Marvin MD Brain MRI 08/15/17 0000 Signed Impressions: Service Date/Time: July 20:08 - CONCLUSION: 1. The MRI appearance of the brain is normal. 2. Left maxillary sinusitis. Ciaran Marvin MD Upper Extremity Ultrasound 08/14/17 0752 Signed Impressions: Service Date/Time: Monday, August 14, 2017 08:03 - CONCLUSION: Nonocclusive thrombus within the left cephalic vein at the antecubital fossa proximal forearm. Remington Baxter MD Chest X-Ray 08/14/17 0657 Signed Impressions: Service Date/Time: Monday, August 14, 2017 07:14 - CONCLUSION: No acute cardiopulmonary abnormality is identified. Ciaran Dhillon MD Assessment and Plan Assessment and Plan Gram positive bacteremia, probable endocarditis Left cephalic vein AC fossa septic thrombophlebitis likely ongoing source of bacteremia. Syphilis appears primary with chancre, oral lesions and diffuse skin lesions over last few days but reports headaches, hyponatremia Cephalgia: Rule out neurological involvement with septic emboli. Hepatitis C positive IVDA Recs: Continue Vanco IV (target 15-20 for endocarditis, septic thrombophlebitis) CT head non contrast LP in view of headache,hyponatremia and syphilis. Check HIV DNA PCR to r/o acute retroviral syndrome. Follow STD workup. Follow 2 D ECHO If bacteremia persistent will need CT C/A/P with contrast. Consult Vascular surgery : Septic thrombophlebitis consider vein stripping if feasible for source control. MRI brain to r/o septic emboli related abscesses to cover for mo 08/16 to 08/18/2017 Olga Garcia MD Aug 15, 2017 18:27
[2017-08-15 20:00] VITALS: BP 121/57; PULSE 92; RESP 18; TEMP 98.7; O2SAT 99
--- NOTE | 2017-08-15 20:10 | RADRPT ---
EXAM DATE/TIME: 08/15/2017 19:56 [facility] COMPARISON: No previous studies available for comparison. INDICATIONS : Head pain. RADIATION DOSE: 35.51 CTDIvol (mGy) MEDICAL HISTORY : None SURGICAL HISTORY : None. ENCOUNTER: Initial ACUITY: 1 day PAIN SCALE: 5/10 LOCATION: cranial TECHNIQUE: Multiple contiguous axial images were obtained of the head. Using automated exposure control and adj ustment of the mA and/or kV according to patient size, radiation dose was kept as low as reasonably a chievable to obtain optimal diagnostic quality images. DICOM format image data is available electro nically for review and comparison. FINDINGS: CEREBRUM: The ventricles are normal for age. No evidence of midline shift, mass lesion, hemorrhage or acute in farction. No extra-axial fluid collections are seen. POSTERIOR FOSSA: The cerebellum and brainstem are intact. The 4th ventricle is midline. The cerebellopontine angle i s unremarkable. EXTRACRANIAL: The visualized portion of the orbits is intact. SKULL: The calvaria is intact. No evidence of skull fracture. CONCLUSION: Negative noncontrast head CT. Ciaran Marvin MD on August 15, 2017 at 20:08 Board Certified Radiologist. This report was verified electronically.
[2017-08-15] MEDS ORDERED: GADODIAMIDE PF 287 MG/ML 5 ML VIAL (for RAD MRI) IVCONTRAST ONE (20:28)
--- NOTE | 2017-08-15 21:05 | RADRPT ---
EXAM DATE/TIME: 08/15/2017 20:08 [facility] COMPARISON: CT BRAIN W/O CONTRAST, August 15, 2017, 19:56. INDICATIONS : Neurosyphylis and bacterial septic emboli related abscesses. CONTRAST: 14 cc Omniscan (gadodiamide) IV MEDICAL HISTORY : None. SURGICAL HISTORY : None. ENCOUNTER: Initial ACUITY: 1 week PAIN SCORE: 3/10 LOCATION: Bilateral cranial TECHNIQUE: Multiplanar, multisequence MRI of the brain was performed both prior to and following the administrat ion of paramagnetic contrast. FINDINGS: CEREBRUM: The ventricles are normal for age. No evidence of midline shift, mass lesion, hemorrhage or acute in farction. No extraaxial fluid collections are seen. The pituitary gland and suprasellar cistern are normal in configuration. WHITE MATTER: No significant signal abnormalities are seen in the white matter. POSTERIOR FOSSA: The cerebellum and brainstem are intact. The 4th ventricle is midline. The cerebellopontine angle is unremarkable. The cerebellar tonsils are normal in position. DIFFUSION IMAGING: No focal areas of restricted diffusion are seen. No evidence of acute infarction. EXTRACRANIAL: There is mucoperiosteal thickening and debris in the lower portions of the left maxillary air cell. POST-CONTRAST: No abnormal areas of parenchymal or dural enhancement. No evidence of blood-brain barrier breakdown. CONCLUSION: 1. The MRI appearance of the brain is normal. 2. Left maxillary sinusitis. Ciaran Marvin MD on August 15, 2017 at 21:01 Board Certified Radiologist. This report was verified electronically.
[2017-08-15] MEDS: MUPIROCIN 2% OINT 22 GM TUBE TOPICAL SCH (22:50)
[2017-08-16] VITALS: BP 130/65; PULSE 85; RESP 18; TEMP 98.2; O2SAT 100
[2017-08-16] MEDS ORDERED: Vancomycin Consult Pharmacy 1 EA OTHER SCH (01:45)
[2017-08-16 04:00] VITALS: BP 122/70; PULSE 83; RESP 18; TEMP 98.5; O2SAT 96
[2017-08-16] MEDS: VANCOMYCIN INJ 1,500 MG in SODIUM CHLORID 0.9% 500 ML INJ 500 ML IV SCH ×2 (05:52→17:19)
[2017-08-16 07:05] LABS: AUTOMATED NEUTROPHIL # 7.9 TH/MM3 (1.8-7.7); BASOPHIL # 0.1 TH/MM3 (0-0.2); BASOPHIL % 0.7 % (0.0-2.0); EOSINOPHIL # 0.1 TH/MM3 (0-0.4); EOSINOPHIL % 0.7 % (0.0-4.0); HEMATOCRIT 36.9 % (39.0-51.0); HEMOGLOBIN 12.2 GM/DL (13.0-17.0); LYMPHOCYTE # 1.9 TH/MM3 (1.0-4.8); MEAN CORPUSCULAR HEMOGLOBIN 27.2 PG (27.0-34.0); MEAN CORPUSCULAR HGB CONC 33.2 % (32.0-36.0); MONO % 7.2 % (0.0-8.0); MONOCYTE # 0.8 TH/MM3 (0-0.9); NEUT % 73.4 % (16.0-70.0); PLATELET COUNT 312 TH/MM3 (150-450); WHITE BLOOD COUNT 10.8 TH/MM3 (4.0-11.0)
[2017-08-16 07:27] LABS: BICARBONATE 25.9 MEQ/L (21.0-32.0); CALCIUM 8.4 MG/DL (8.5-10.1); CREATININE 0.74 MG/DL (0.60-1.30)
[2017-08-16 08:00] VITALS: BP 116/76; PULSE 81; RESP 17; TEMP 98.5; O2SAT 100
[2017-08-16] MEDS: SODIUM CHLORIDE 0.9% FLUSH 10 ML FLUSH IV FLUSH SCH ×2 (09:00→22:22)
[2017-08-16] MEDS: NYSTAT/DIPHENHY/LIDO MOUTHWASH (Adult) 120ML SWISH-SWAL SCH ×4 (09:00→22:22)
[2017-08-16] MEDS: MUPIROCIN 2% OINT 22 GM TUBE TOPICAL SCH ×2 (09:00→22:23)
--- NOTE | 2017-08-16 09:18 | PD.RAD ---
Post Procedure Progress Note Pre Procedure Diagnosis: (1) Syphilis Post Procedure Diagnosis: (1) Syphilis Procedure Date: Aug 16, 2017 Supervising Radiologist: Timmy Doran Proceduralist/Assist: Samantha Alcantara, RT(R)(CV), Adele Sanford RT(R) Anesthesia: Local Plan of Activity Patient to Unit: Nursing Unit Patient Condition: Good See PACS Report for procedural detail/treatment Spinal Procedure Lumbar Puncture L3-L4 Fluid Removal (CCs): 12 Fluid Description: Clear (opening pressure 12) Timmy Doran MD Aug 16, 2017 09:18
[2017-08-16 09:53] LABS: TOTAL PROTEIN,CSF 22.8 MG/DL (15.0-45.0)
--- NOTE | 2017-08-16 10:13 | HHI.FPPN ---
Subjective Remarks No acute events overnight. Patient was about to be taken down for his LP. Currently denying CP, SOB. States his L arm is more sore today. He hasn't been receiving K thermia or warm compresses to this point. (Jasbir Perez MD R1) Objective Vitals Vital Signs Date Time Temp Pulse Resp B/P (MAP) Pulse Ox O2 Delivery O2 Flow Rate FiO2 08/16/17 08:00 98.5 81 17 116/76 (89) 100 08/16/17 04:00 98.5 83 18 122/70 (87) 96 08/16/17 00:00 98.2 85 18 130/65 (86) 100 08/15/17 20:00 98.7 92 18 121/57 (78) 99 08/15/17 17:05 98.7 85 21 115/56 (75) 99 08/15/17 12:51 98.1 81 18 109/54 (72) 100 I/O 08/15/17 08/15/17 08/15/17 08/16/17 08/16/17 08/16/17 07:00 15:00 23:00 07:00 15:00 23:00 Intake Total 1663 ml Output Total 0 ml 600 ml 1400 ml 1000 ml 1700 ml Balance 1663 ml -600 ml -1400 ml -1000 ml -1700 ml Intake Oral 700 ml IV Total 963 ml Output Urine Total 0 ml 600 ml 1400 ml 1000 ml 1700 ml # Voids 3 # Bowel Movements 1 (Jasbir Perez MD R1) Result Diagram: 08/16/17 0636 08/16/17 0636 Objective Remarks GENERAL: This is a well-nourished, well-developed patient, in no apparent distress. SKIN: Left forearm with moderate sized 8x8 cm erythematous and slightly tender area. Multiple excoriations noted on patient's face, neck, back. Different stages of healing. No purulent drainage appreciated Penis (examined on 08/15): On the glans penis there is a chancre sore approximately 5x5 mm, non painful; also a 3x3 mm non painful chancre sore on the right shaft of penis. +bilateral inguinal lymphadenopathy HEAD: Atraumatic. Normocephalic. EYES: Pupils equal round and reactive. Extraocular motions intact. No scleral icterus. No injection or drainage. ENT: Nose without bleeding, purulent drainage or septal hematoma. Throat is erythematous with multiple ulcerations noted in posterior oropharynx. Uvula midline. Airway patent. NECK: Trachea midline. No JVD or lymphadenopathy. Supple, nontender, no meningeal signs. CARDIOVASCULAR: Regular rate and rhythm. 1-2/6 systolic murmur appreciated along L sternal border RESPIRATORY: Clear to auscultation. Breath sounds equal bilaterally. No wheezes , rales, or rhonchi. GASTROINTESTINAL: Abdomen soft, non-tender, nondistended. No hepato-splenomegaly , or palpable masses. No guarding. MUSCULOSKELETAL: Extremities without clubbing, cyanosis, or edema. No joint tenderness, effusion, or edema noted. No calf tenderness. Negative Homans sign bilaterally. No obvious abscess, drainage appreciated. No splinter hemorrhages appreciated in fingers/toes NEUROLOGICAL: Awake and alert. Cranial nerves II through XII intact. Motor and sensory grossly within normal limits. Five out of 5 muscle strength in all muscle groups. Normal speech. (Jasbir Perez MD R1) A/P Assessment and Plan 31 yo M with history of IVDU presenting to ED with 3 day history of progressive L forearm swelling/pain. Also with subjective fevers, sore throat and penile discharge. Ultrasound on admission notable for nonocclusive thrombus in the L cephalic vein at the antecubital fossa. Meets SIRS criteria on admission. Will admit to inpatient and start on antibiotics. Syphilis chancre noted, also found to be bacteremic on 08/15. ID consulted, who subsequently consulted vascular surgery as the thrombophlebitis may be the source of his bacteremia. Echocardiogram normal. Head MRI, CT was normal. LP results pending. Discharge Planning Unclear at this time. (Jasbir Perez MD R1) Attending Attestation Patient seen and examined, discussed with the medicine team and with his nurse. He is back from his LP and is lying on his left side. He wonders how long he will need to be in the hospital. I did encourage him strongly to stick it out, and told him that he would likely be here at least 2 more days. The health department has contacted his nurse this morning as they would like to speak with Madhav. Infectious disease is involved, and they have requested CV surgery to see him regarding his bacteremia and thrombophlebitis. I agree with the physical findings as documented, and with the plan. (Awilda Gutierrez MD) Problem List: (1) Bacteremia ICD Codes: R78.81 - Bacteremia Status: Acute Plan: Blood cultures 08/14 growing gram-positive cocci Could be 2/2 to endocarditis or septic thrombophlebitis History of IV drug use Echocardiogram with no visible vegetations Infectious disease consulted Currently on Vancomycin 1500 g q12 hours Vancomycin pharmacy consult Antibiotic history: Vancomycin 1.5 g every 12 hours Azithromycin 1 g 1 (stopped) Zosyn given 1 time Ceftriaxone 1 g given 1 Penicillin G given x1 (2) Syphilis ICD Codes: A53.9 - Syphilis, unspecified Status: Acute Plan: Physical exam shows a penile painless canker sore resembling syphilis RPR reactive T. pallidum (FTA antibody) pending Treat with 1 dose of penicillin benzathine 2.4 million units IM on 08/15 Patient notified and instructed this is extremely contagious and to use safe sex precautions with condom. ID concerned for tertiary syphilis as patient has also been experiencing headaches Head CT/MRI negative LP results pending HIV DNA PCR pending (3) Thrombophlebitis arm ICD Codes: I80.8 - Phlebitis and thrombophlebitis of other sites Status: Acute Plan: Patient presenting with 3 day history of left forearm swelling, pain Known IV drug user Ultrasound on admission notable for nonocclusive thrombus in the L cephalic vein at the antecubital fossa Nursing staff notified team that [facility], will order for warm compresses ID consulted vascular surgery with concern that it could be a septic thrombophlebitis - will follow recommendations Ibuprofen, Toradol for pain Antibiotics as above (4) Sepsis ICD Codes: A41.9 - Sepsis, unspecified organism Status: Resolved Plan: Currently resolved. See bacteremia above (5) Hyponatremia ICD Codes: E87.1 - Hypo-osmolality and hyponatremia Status: Resolved Plan: Resolved (6) Penile discharge ICD Codes: R36.9 - Urethral discharge, unspecified Status: Resolved Plan: Physical exam concerning for syphilis GC, chlamydia-negative RPR reactive HIV Ab screen negative, HIV DNA PCR pending Received azithromycin, Rocephin 1 to prophylactically treat GC chlamydia (7) IVDU (intravenous drug user) ICD Codes: F19.90 - Other psychoactive substance use, unspecified, uncomplicated Status: Acute Plan: Known history of IV drug use Reports injecting Dilaudid regularly Nursing reports suspicious activity. Patient is told multiple varying stories. Do not allow visitors at this time (Order placed for this.) UDS on admission positive for opiates and cocaine (8) Throat pain ICD Codes: R07.0 - Pain in throat Plan: Sore throat for 2 weeks Physical exam showed ulcerations in the posterior oropharynx. Possibly related to syphilis. See treatment as above. Group a streptococcus screen was negative on admission [place] screen negative Ordering Magic mouthwash for symptomatic relief (9) Hepatitis C antibody positive in blood ICD Codes: R76.8 - Other specified abnormal immunological findings in serum Status: Acute Plan: Patient to be informed about hepatitis C antibody positive Considering hepatitis C viral load at this time versus outpatient workup (10) FEN Status: Acute Plan: Normal saline at 100 mL/h We will replete electrolytes as needed Regular diet SCDs for DVT prophylaxis (Jasbir Perez MD R1) Jasbir Perez MD R1 Aug 16, 2017 10:13 Awilda Gutierrez MD Aug 16, 2017 11:18
--- NOTE | 2017-08-16 10:24 | RADRPT ---
EXAM DATE/TIME: 08/16/2017 09:06 [facility] COMPARISON: No previous studies available for comparison. INDICATIONS : Patient presents to ER for left arm swelling and exposure to syphllis. MEDICAL HISTORY : 1. Hep C 2. Mrsa right thumb 3.IVDA SURGICAL HISTORY : 1. I&D of rt thumb ENCOUNTER: Initial ACUITY: 1 week PAIN SCORE: 3/10 LOCATION: Left arm LUMBAR PUNCTURE TIME: 0905 hours FLUORO TIME: 0.6 minutes IMAGE SERIES: 1 ACCESS LEVEL: L3-4 OPENING PRESSURE: 12 cm of water Not requested. FLUID: 16.5 cc of clear CSF was collected and sent to the laboratory for analysis. PROCEDURE : 1. Fluoroscopic guided lumbar puncture. 2. Recording of opening pressure. The risks, benefits and alternatives to the procedure were explained and verbal and written consent w as obtained. The site was prepped in sterile fashion. Full sterile technique was used, including ca p, mask, sterile gloves and gown and a large sterile sheet. Hand hygiene and 2% chlorhexidine and/or betadine/alcohol prep was utilized per protocol for cutaneous antisepsis. The skin and subcutaneous tissues were infiltrated with local anesthetic solution. With fluoroscopic guidance the lumbar thecal sac was punctured at the above level described above and the opening pressure was recorded. The above described fluid was removed without difficulty. The patient tolerated the procedure well and there were no complications. CONCLUSION: Uncomplicated fluoroscopically guided lumbar puncture with pressures as above. Timmy Doran MD on August 16, 2017 at 10:21 Board Certified Radiologist. This report was verified electronically.
[2017-08-16 10:25] LABS: SUPERNATE COLOR TUBE #1 CLEAR (CLEAR); VOLUME TUBE # 1 3.4 ML
[2017-08-16 10:26] LABS: CSF LYMPHOCYTES 33 %; CSF MONOCYTES 34 %; CSF NEUTROPHILS 33 %; RBC TUBE #4 0 /MM3; WBC TUBE #4 1 /MM3 (0-10)
[2017-08-16] MEDS: SODIUM CHLOR 0.9% 1000 ML INJ 1,000 ML IV SCH ×2 (11:21→22:23)
[2017-08-16 12:00] VITALS: BP 121/75; PULSE 77; RESP 18; TEMP 98.3; O2SAT 100
[2017-08-16 16:00] VITALS: BP 105/71; PULSE 82; RESP 21; TEMP 98.8; O2SAT 100
[2017-08-16 20:00] VITALS: BP 111/74; PULSE 83; PULSE 90; RESP 20; TEMP 98.4; O2SAT 99
[2017-08-17] VITALS (8 sets, daily range): BP systolic 116–137; BP diastolic 57–75; PULSE 59–79; RESP 16–21; TEMP 97.5–98.3; O2SAT 98–100
[2017-08-17] MEDS ORDERED: PHARMACY ORDERED LAB ONE (04:45)
[2017-08-17] MEDS: VANCOMYCIN INJ 1,500 MG in SODIUM CHLORID 0.9% 500 ML INJ 500 ML IV SCH (04:56)
--- NOTE | 2017-08-17 08:47 | HHI.FPPN ---
Subjective Remarks Pt seen and examined this morning. No acute events overnight. Is wondering when he can go home. Denies any headache, fever/chills, nausea/vomiting, chest pain, SOB, abdominal pain, leg pain. States his left arm is improving, is less red and less painful. Objective Vitals Vital Signs Date Time Temp Pulse Resp B/P (MAP) Pulse Ox O2 Delivery O2 Flow Rate FiO2 08/17/17 08:27 98.2 59 18 117/63 (81) 100 08/17/17 04:00 98.2 68 19 116/65 (82) 99 08/17/17 00:00 98.2 70 18 124/71 (88) 100 08/17/17 00:00 74 08/16/17 20:00 90 08/16/17 20:00 98.4 83 20 111/74 (86) 99 08/16/17 16:00 98.8 82 21 105/71 (82) 100 08/16/17 12:00 98.3 77 18 121/75 (90) 100 I/O 08/16/17 08/16/17 08/16/17 08/17/17 08/17/17 08/17/17 07:00 15:00 23:00 07:00 15:00 23:00 Intake Total 250 ml 500 ml Output Total 1000 ml 1700 ml 1650 ml 300 ml Balance -1000 ml -1450 ml -1150 ml -300 ml IV Total 250 ml 500 ml Output Urine Total 1000 ml 1700 ml 1650 ml 300 ml # Voids 4 # Bowel Movements 0 0 Result Diagram: 08/16/17 0636 08/16/17 0636 Objective Remarks GENERAL: This is a well-nourished, well-developed patient, in no apparent distress. SKIN: Left forearm with moderate sized 8x8 cm erythematous and slightly tender area. Improving erythema. Multiple excoriations noted on patient's face, neck, back. Different stages of healing. No purulent drainage appreciated Penis (examined on 08/15): On the glans penis there is a chancre sore approximately 5x5 mm, non painful; also a 3x3 mm non painful chancre sore on the right shaft of penis. +bilateral inguinal lymphadenopathy CARDIOVASCULAR: Regular rate and rhythm. 1/6 systolic murmur appreciated along L sternal border RESPIRATORY: Clear to auscultation. Breath sounds equal bilaterally. No wheezes , rales, or rhonchi. GASTROINTESTINAL: Abdomen soft, non-tender, nondistended. MUSCULOSKELETAL: Extremities without clubbing, cyanosis, or edema. No joint tenderness, effusion, or edema noted. No calf tenderness. No obvious abscess, drainage appreciated. No splinter hemorrhages appreciated in fingers/toes NEUROLOGICAL: Awake and alert. Motor and sensory grossly within normal limits. Normal speech. A/P Assessment and Plan 31 yo M with history of IVDU presenting to ED with 3 day history of progressive L forearm swelling/pain. Also with subjective fevers, sore throat and penile discharge. Ultrasound on admission notable for nonocclusive thrombus in the L cephalic vein at the antecubital fossa. Meets SIRS criteria on admission. Will admit to inpatient and start on antibiotics. Syphilis chancre noted, also found to be bacteremic on 08/15. ID consulted, who subsequently consulted vascular surgery as the thrombophlebitis may be the source of his bacteremia. Echocardiogram normal. Head MRI, CT was normal. LP results pending. Discharge Planning Pending ID workup Problem List: (1) Bacteremia ICD Codes: R78.81 - Bacteremia Status: Acute Plan: Blood cultures 08/14 growing group a beta strep-sensitivities pending Could be 2/2 to endocarditis or septic thrombophlebitis History of IV drug use Echocardiogram with no visible vegetations Repeat blood cultures today Infectious disease consulted-appreciate recs Currently on Vancomycin 1500 g q12 hours Vancomycin pharmacy consult Antibiotic history: Vancomycin 1.5 g every 12 hours Azithromycin 1 g 1 (stopped) Zosyn given 1 time Ceftriaxone 1 g given 1 Penicillin G given x1 (2) Syphilis ICD Codes: A53.9 - Syphilis, unspecified Status: Acute Plan: Physical exam shows a penile painless canker sore resembling syphilis RPR reactive T. pallidum (FTA antibody) positive Treated with 1 dose of penicillin benzathine 2.4 million units IM on 08/15 Patient notified and instructed this is extremely contagious and to use safe sex precautions with condom. ID concerned for tertiary syphilis as patient has also been experiencing headaches Head CT/MRI negative LP results negative HIV DNA PCR pending (3) Thrombophlebitis arm ICD Codes: I80.8 - Phlebitis and thrombophlebitis of other sites Status: Acute Plan: Patient presenting with 3 day history of left forearm swelling, pain Known IV drug user Ultrasound on admission notable for nonocclusive thrombus in the L cephalic vein at the antecubital fossa Nursing staff notified team that hospital is out of K thermia, will order for warm compresses ID consulted vascular surgery with concern that it could be a septic thrombophlebitis - will follow recommendations Ibuprofen, Toradol for pain Antibiotics as above (4) Sepsis ICD Codes: A41.9 - Sepsis, unspecified organism Status: Resolved Plan: Currently resolved. See bacteremia above (5) IVDU (intravenous drug user) ICD Codes: F19.90 - Other psychoactive substance use, unspecified, uncomplicated Status: Acute Plan: Known history of IV drug use Reports injecting Dilaudid regularly Nursing reports suspicious activity. Patient is told multiple varying stories. Do not allow visitors at this time (Order placed for this.) UDS on admission positive for opiates and cocaine (6) Throat pain ICD Codes: R07.0 - Pain in throat Plan: Sore throat for 2 weeks Physical exam showed ulcerations in the posterior oropharynx. Possibly related to syphilis. See treatment as above. Group a beta strep culture positive [place] screen negative Ordering Magic mouthwash for symptomatic relief (7) Hepatitis C antibody positive in blood ICD Codes: R76.8 - Other specified abnormal immunological findings in serum Status: Acute Plan: Patient informed about hepatitis C antibody positive Consider hepatitis C viral load at this time versus outpatient workup (8) FEN Status: Acute Plan: Tolerating PO We will replete electrolytes as needed Regular diet SCDs for DVT prophylaxis Braulio Barton MD R2 Aug 17, 2017 08:47
[2017-08-17] MEDS: NYSTAT/DIPHENHY/LIDO MOUTHWASH (Adult) 120ML SWISH-SWAL SCH ×4 (09:09→22:15)
[2017-08-17] MEDS: SODIUM CHLORIDE 0.9% FLUSH 10 ML FLUSH IV FLUSH SCH ×2 (09:11→22:15)
[2017-08-17] MEDS: MUPIROCIN 2% OINT 22 GM TUBE TOPICAL SCH ×2 (09:11→22:17)
[2017-08-17 14:38] LABS: HSV 1,PCR Negative (Negative)
[2017-08-17] MEDS: VANCOMYCIN INJ 1,250 MG in SODIUM CHLOR 0.9% 250 ML INJ 250 ML IV SCH (15:37)
[2017-08-17] MEDS ORDERED: ZOLPIDEM TARTRATE 5 MG TAB PO PRN (21:00)
[2017-08-18] VITALS: BP 121/62; PULSE 77; RESP 21; TEMP 98; O2SAT 99
[2017-08-18 00:14] VITALS: PULSE 75
[2017-08-18] MEDS: VANCOMYCIN INJ 1,250 MG in SODIUM CHLOR 0.9% 250 ML INJ 250 ML IV SCH ×2 (00:33→08:23)
[2017-08-18 03:43] VITALS: PULSE 66
[2017-08-18 04:00] VITALS: BP 101/58; PULSE 62; RESP 21; TEMP 97.8; O2SAT 100
[2017-08-18 06:04] LABS: HEMATOCRIT 40.5 % (39.0-51.0); HEMOGLOBIN 13.5 GM/DL (13.0-17.0); MEAN CELL VOLUME 82.3 FL (80.0-100.0); MEAN CORPUSCULAR HEMOGLOBIN 27.4 PG (27.0-34.0); MEAN CORPUSCULAR HGB CONC 33.3 % (32.0-36.0); MEAN PLATELET VOLUME 7.3 FL (7.0-11.0); PLATELET COUNT 378 TH/MM3 (150-450); RED BLOOD COUNT 4.92 MIL/MM3 (4.50-5.90); RED CELL DISTRIBUTION WIDTH 13.2 % (11.6-17.2); WHITE BLOOD COUNT 9.2 TH/MM3 (4.0-11.0)
[2017-08-18 06:39] LABS: BICARBONATE 26.9 MEQ/L (21.0-32.0); CALCIUM 8.9 MG/DL (8.5-10.1); CREATININE 0.7 MG/DL (0.60-1.30)
[2017-08-18 08:24] VITALS: BP 111/59; PULSE 73; RESP 16; TEMP 98.5; O2SAT 100
[2017-08-18] MEDS: NYSTAT/DIPHENHY/LIDO MOUTHWASH (Adult) 120ML SWISH-SWAL SCH (08:24)
[2017-08-18] MEDS: SODIUM CHLORIDE 0.9% FLUSH 10 ML FLUSH IV FLUSH SCH (08:24)
[2017-08-18] MEDS: MUPIROCIN 2% OINT 22 GM TUBE TOPICAL SCH (08:25)
--- NOTE | 2017-08-18 10:39 | HHI.FPPN ---
Subjective Remarks No acute events overnight. Patient continues to complain of soreness in the left forearm, but states it is improving. Also states the swelling/redness is improving. He states he wants to leave today and is requesting p.o. antibiotics to go home on. He currently denies chest pain, shortness of breath , nausea or vomiting or diarrhea (Jasbir Perez MD R1) Objective Vitals Vital Signs Date Time Temp Pulse Resp B/P (MAP) Pulse Ox O2 Delivery O2 Flow Rate FiO2 08/18/17 08:24 98.5 73 16 111/59 (76) 100 08/18/17 04:00 97.8 62 21 101/58 (72) 100 08/18/17 03:43 66 08/18/17 00:14 75 08/18/17 00:00 98.0 77 21 121/62 (81) 99 08/17/17 20:37 60 08/17/17 20:00 98.3 79 21 117/60 (79) 100 08/17/17 16:10 97.8 66 16 120/57 (78) 98 08/17/17 12:35 97.5 79 18 137/75 (95) 100 I/O 08/17/17 08/17/17 08/17/17 08/18/17 08/18/17 08/18/17 06:59 14:59 22:59 06:59 14:59 22:59 Intake Total 600 ml Output Total 300 ml 1000 ml Balance -300 ml -1000 ml 600 ml Intake Oral 600 ml Output Urine Total 300 ml 1000 ml # Voids 4 6 # Bowel Movements 0 (Jasbir Perez MD R1) Result Diagram: 08/18/1741408/18/17414 Objective Remarks GENERAL: This is a well-nourished, well-developed patient, in no apparent distress. SKIN: Left forearm with moderate sized 8x8 cm erythematous and slightly tender area. Improving erythema. Multiple excoriations noted on patient's face, neck, back. Different stages of healing. No purulent drainage appreciated Penis (examined on 08/18): On the glans penis there is a chancre sore approximately 5x5 mm, less erythematous than prior exam; also a 3x3 mm non painful chancre sore on the right shaft of penis. CARDIOVASCULAR: Regular rate and rhythm. No murmur appreciated on today's exam RESPIRATORY: Clear to auscultation. Breath sounds equal bilaterally. No wheezes , rales, or rhonchi. GASTROINTESTINAL: Abdomen soft, non-tender, nondistended. MUSCULOSKELETAL: Extremities without clubbing, cyanosis, or edema. No joint tenderness, effusion, or edema noted. No calf tenderness. No obvious abscess, drainage appreciated. No splinter hemorrhages appreciated in fingers/toes NEUROLOGICAL: Awake and alert. Motor and sensory grossly within normal limits. Normal speech. (Jasbir Perez MD R1) A/P Assessment and Plan 31 yo M with history of IVDU presenting to ED with 3 day history of progressive L forearm swelling/pain. Also with subjective fevers, sore throat and penile discharge. Ultrasound on admission notable for nonocclusive thrombus in the L cephalic vein at the antecubital fossa. Meets SIRS criteria on admission. Will admit to inpatient and start on antibiotics. Syphilis chancre noted, also found to be bacteremic on 08/15. ID consulted, who subsequently consulted vascular surgery as the thrombophlebitis may be the source of his bacteremia. Echocardiogram normal. Head MRI, CT was normal. LP normal. Discharge Planning If septic thrombophlebitis suspected, patient will need weeks of IV antibiotics. Patient threatening to leave AMA (Jasbir Perez MD R1) Attending Attestation Pt. seen and examined; discussed with the medicine team. Pt. feels better, arm less painful, feels facial rash is improving. Wants to go home as he is concerned about his belongings as he is required to move. Exam is stable with improvement in his left arm swelling and erythema, ROM improved. Facial rash less erythematous and crusting. Explained culture results back tomorrow, encouraged pt. to wait until seen by ID tomorrow to explain need for further antibiotics. He wants to leave on po antibiotics. (Awilda Gutierrez MD) Problem List: (1) Bacteremia ICD Codes: R78.81 - Bacteremia Status: Acute Plan: Blood cultures 08/14 growing group a beta strep-sensitivities pending Could be 2/2 to endocarditis or septic thrombophlebitis History of IV drug use Echocardiogram with no visible vegetations Repeat blood cultures from 08/17 pending Infectious disease consulted-appreciate recs Currently on Vancomycin 1500 g q12 hours Vancomycin pharmacy consult Antibiotic history: Vancomycin 1.5 g every 12 hours Azithromycin 1 g 1 (stopped) Zosyn given 1 time Ceftriaxone 1 g given 1 Penicillin G given x1 (2) Syphilis ICD Codes: A53.9 - Syphilis, unspecified Status: Acute Plan: Physical exam shows a penile painless canker sore resembling syphilis RPR reactive T. pallidum (FTA antibody) positive Treated with 1 dose of penicillin benzathine 2.4 million units IM on 08/15 Patient notified and instructed this is extremely contagious and to use safe sex precautions with condom. ID concerned for tertiary syphilis as patient has also been experiencing headaches Head CT/MRI negative LP results negative HIV DNA PCR pending (3) Thrombophlebitis arm ICD Codes: I80.8 - Phlebitis and thrombophlebitis of other sites Status: Acute Plan: Patient presenting with 3 day history of left forearm swelling, pain Known IV drug user Ultrasound on admission notable for nonocclusive thrombus in the L cephalic vein at the antecubital fossa Nursing staff notified team that hospital is out of K [facility], will order for warm compresses ID consulted vascular surgery with concern that it could be a septic thrombophlebitis - will follow recommendations Ibuprofen, Toradol for pain Antibiotics as above (4) Sepsis ICD Codes: A41.9 - Sepsis, unspecified organism Status: Resolved Plan: Currently resolved. See bacteremia above (5) IVDU (intravenous drug user) ICD Codes: F19.90 - Other psychoactive substance use, unspecified, uncomplicated Status: Acute Plan: Known history of IV drug use Reports injecting Dilaudid regularly Nursing reports suspicious activity. Patient is told multiple varying stories. Do not allow visitors at this time (Order placed for this.) UDS on admission positive for opiates and cocaine (6) Throat pain ICD Codes: R07.0 - Pain in throat Plan: Sore throat for 2 weeks Physical exam showed ulcerations in the posterior oropharynx. Possibly related to syphilis. See treatment as above. Group a beta strep culture positive [place] screen negative Ordering Magic mouthwash for symptomatic relief (7) Hepatitis C antibody positive in blood ICD Codes: R76.8 - Other specified abnormal immunological findings in serum Status: Acute Plan: Patient informed about hepatitis C antibody positive Consider hepatitis C viral load at this time versus outpatient workup (8) FEN Status: Acute Plan: Tolerating PO We will replete electrolytes as needed Regular diet SCDs for DVT prophylaxis (Jasbir Perez MD R1) Jasbir Perez MD R1 Aug 18, 2017 10:38 Awilda Gutierrez MD Aug 18, 2017 12:54
--- NOTE | 2017-08-18 11:37 | HHI.DS ---
Discharge Summary Admission Date Aug 14, 2017 at 08:36 Discharge Date: Aug 18, 2017 Admitting Diagnosis Left arm cellulitis/thrombophlebitis/sepsis (1) Bacteremia ICD Codes: R78.81 - Bacteremia Status: Acute (2) Syphilis ICD Codes: A53.9 - Syphilis, unspecified Status: Acute (3) Thrombophlebitis arm ICD Codes: I80.8 - Phlebitis and thrombophlebitis of other sites Status: Acute (4) Sepsis ICD Codes: A41.9 - Sepsis, unspecified organism Status: Resolved (5) IVDU (intravenous drug user) ICD Codes: F19.90 - Other psychoactive substance use, unspecified, uncomplicated Status: Acute (6) Throat pain ICD Codes: R07.0 - Pain in throat (7) Hepatitis C antibody positive in blood ICD Codes: R76.8 - Other specified abnormal immunological findings in serum Status: Acute Brief History 31 yo M with h/o IVDU presenting with L arm swelling. He states it started swelling 3 days ago and has gotten progressively worse. Started near the antecubital fossa and has extended down his arm. Now having difficulty extending his forearm. Of note he injects Dilaudid (states he last used roughly 1 week ago). He injects in his R arm and has not injected anything in his L arm. Subjective fevers/chills. No N/V. No history of blood clots in the past. He does share needles with his occasionally, who was told she has Hepatitis C. Has been having multiple skin infections (shoulder, back of head) - abscesses that have been draining - over last month. Was hospitalized in [facility] 8 months ago for skin infection in his R hand that required I&D. He states he was told he needed to be on prophylactic Abx for MRSA Also complaining of sore throat for 2 weeks, painful to swallow. Has not been treated Green penile discharge for 2 weeks - last intercourse was 1 month ago. Doesn't use condoms. Of note, the Health department contacted the hospital on admission and stated he was exposed to Syphilis and they have not been able to contact him to this point. CBC/BMP: 08/18/17 0415 08/18/17 0415 Significant Findings Laboratory Tests Test 08/16/17 06:36 08/16/17 09:05 08/17/17 04:45 08/18/17 04:15 Hemoglobin 12.2 GM/DL (13.0-17.0) Hematocrit 36.9 % (39.0-51.0) Neutrophils (%) (Auto) 73.4 % (16.0-70.0) Neutrophils # (Auto) 7.9 TH/MM3 (1.8-7.7) Calcium Level 8.4 MG/DL (8.5-10.1) PE at Discharge GENERAL: This is a well-nourished, well-developed patient, in no apparent distress. SKIN: Left forearm with moderate sized 8x8 cm erythematous and slightly tender area. Improving erythema. Multiple excoriations noted on patient's face, neck, back. Different stages of healing. No purulent drainage appreciated Penis (examined on 08/18): On the glans penis there is a chancre sore approximately 5x5 mm, less erythematous than prior exam; also a 3x3 mm non painful chancre sore on the right shaft of penis. CARDIOVASCULAR: Regular rate and rhythm. No murmur appreciated on today's exam RESPIRATORY: Clear to auscultation. Breath sounds equal bilaterally. No wheezes , rales, or rhonchi. GASTROINTESTINAL: Abdomen soft, non-tender, nondistended. MUSCULOSKELETAL: Extremities without clubbing, cyanosis, or edema. No joint tenderness, effusion, or edema noted. No calf tenderness. No obvious abscess, drainage appreciated. No splinter hemorrhages appreciated in fingers/toes NEUROLOGICAL: Awake and alert. Motor and sensory grossly within normal limits. Normal speech. Hospital Course 31-year-old male with history of IV drug use who presented with a thrombophlebitis with overlying cellulitis in his left forearm and was admitted for antibiotic treatment. Ultrasound on admission notable for nonocclusive thrombus in the L cephalic vein at the antecubital fossa. He was found to be bacteremic on admission, cultures grew group a beta strep. He was started on vancomycin for the cellulitis. Patient had also been complaining of penile discharge and was empirically treated with azithromycin, Rocephin x1. Also found to have a chancre on his penis and was treated with penicillin. RPR was positive. Infectious disease was consulted and performed CT, MRI of the brain as well as lumbar puncture to rule out tertiary syphilis. All of those studies were negative. Echocardiogram was also performed with no visible vegetations. Repeat cultures obtained on 08/17 were negative after 24 hours, the patient left AMA on 08/18. Infectious disease felt that patient need to be treated for septic thrombo-phlebitis which would require multiple weeks of IV antibiotics. Patient was also found to be hepatitis C antibody positive during this admission , he was informed and will likely need a viral load as an outpatient. Pt Condition on Discharge: Stable Discharge Instructions Follow up Referrals: Gastroenterology - 2 Weeks Infectious Disease - 2 Weeks PCP Follow-up - 1 Month Jasbir Perez MD R1 Aug 18, 2017 11:37
--- NOTE | 2017-08-18 11:38 | PD.AMA ---
Against Medical Advice Note Diagnosis: (1) Thrombophlebitis arm (2) Left arm cellulitis (3) Bacteremia (4) Syphilis (5) Hepatitis C antibody positive in blood Discharge Disposition: Against Medical Advice Pt Condition on Discharge: Stable Recommended Treatment Course Patient would likely need multiple weeks of IV antibiotics to treat for septic thrombophlebitis. AMA Statement Patient Madhav Sharma has decided to leave the hospital against medical advice. This patient has the capacity to refuse care and understands the risks of leaving, including permanent disability and/or , and has had an opportunity to ask questions about his condition. The patient has been informed that he may return for care at any time, and follow up has been arranged/ advised. Jasbir Perez MD R1 Aug 18, 2017 11:38
[2017-08-19] MEDS ORDERED: PHARMACY ORDERED LAB ONE (03:45)
[2017-08-19 09:25] LABS: CSF CRYPTOCOCCUS AG CONF ND (NOT DETECTD)
[2017-08-20 23:52] LABS: TREPONEMA PALLIDUM ABS CSF NON-REACTIVE (NON-REACTVE)
[2017-08-21 03:49] LABS: CSF CRYPTOCOCCUS ANTIGEN NOT DETECTED (NEGATIVE)
== END 2017-08-18 12:03 | disposition left against medical advice (07) | DRG 872 ==
LOC: NEPE 06:20 → NEDA 08:36 → N05B 14:50
PROVIDERS: ADMIT Family Medicine; ATTEND Family Medicine
PROC: 009U3ZX Drainage of Spinal Canal, Percutaneous Approach, Diagnostic (ICD-10-PCS; principal; 2017-08-16)
DX: A40.0 Sepsis due to streptococcus, group A (principal); I80.8 Phlebitis and thrombophlebitis of other sites; E87.1 Hypo-osmolality and hyponatremia; L03.114 Cellulitis of left upper limb; L02.818 Cutaneous abscess of other sites; J39.2 Other diseases of pharynx; Z20.2 Contact with and (suspected) exposure to infections with a predominantly sexual mode of transmission; F19.90 Other psychoactive substance use, unspecified, uncomplicated; A53.9 Syphilis, unspecified; B19.20 Unspecified viral hepatitis C without hepatic coma; R51 Headache
CPT/HCPCS: 62270; 70450; 70553; 71045; 77003; 80048; 80053; 80074; 80202; 80307; 81001; 82550; 82552; 82945; 83605; 83735; 84157; 84484; 85025; 85027; 85610; 85652; 85730; 86140; 86308; 86403; 86592; 86593; 86703; 86780; 87015; 87040; 87070; 87081; 87102; 87116; 87186; 87205; 87206; 87491; 87529; 87535; 87591; 87880; 89051; 93005; 93306; 93971; 96365; 96368; A9579; J0561; J0696; J1885; J2543; J3370; J7030; J7040; J7050